=== PATIENT | male | born 1985 | race Caucasian/White ===

== ENCOUNTER 2020-02-22 09:49 | Emergency (ER) | payer OTHER, SELFPAY ==
[2020-02-22 09:56] VITALS: BP 115/71; PULSE 84; RESP 16; TEMP 37.4; O2SAT 98
--- NOTE | 2020-02-22 10:02 | ED.GENADULT ---
HPI - General Adult General Chief complaint: Upper Respiratory Infection Stated complaint: sore throat/ear throbbing Time Seen by Provider: 02/22/20 10:02 Source: patient Mode of arrival: ambulatory Limitations: no limitations History of Present Illness HPI narrative: 34-year-old male patient presents to the [facility] with complaints of a sore throat left-sided ear pain for the past 3 days. Patient states he has had strep throat before in the past. Denies any fevers. Denies any coughing, chest pain or shortness of breath. Denies any runny nose or drainage to the back the throat. Patient states he has been taking Tylenol for his symptoms. Patient states he noticed that the throat swelling was getting worse today almost to the point where he was having trouble swallowing. Related Data Allergies Allergy/AdvReac Type Severity Reaction Status Date / Time No Known Allergies Allergy Verified 02/22/20 10:07 Review of Systems Review of Systems: Narrative: CONSTITUTIONAL: Denies fever, chills, or sweats. EYES: Denies visual changes, redness, or discharge. ENT: Denies rhinorrhea, congestion, positive sore throat, positive left otalgia. CARDIOVASCULAR: Denies chest pain, palpitations, or edema. RESPIRATORY: Denies cough or dyspnea. GASTROINTESTINAL: Denies abdominal pain, nausea, vomiting, or diarrhea. GENITOURINARY: Denies dysuria or hematuria. SKIN: Denies rash or itching. MUSCULOSKELETAL: Denies back pain, joint pain, or myalgia. NEUROLOGIC: Denies headache, numbness, or weakness. PSYCHIATRIC: Denies anxiety or depression. PMFSH Comments At the time of my signature I agree with nursing past medical history, surgical, social, and family history. There is no relevant family history pertinent to the presenting complaint. Exam Narrative: Exam Narrative: GENERAL: Well-appearing, well-nourished, and in no acute distress. HEAD: Normocephalic, atraumatic. EYES: PERRLA and EOMI. ENT: Nares clear, no rhinorrhea or epistaxis. Mucous membranes moist. Posterior pharynx with 3+ tonsil enlargement on bilateral sides, not quite kissing at this time. Patient able talk in clear complete sentences and tolerating secretions well. Patient does have a hot potato voice noted during exam. NECK: Supple. No lymphadenopathy CHEST: Clear to auscultation. No respiratory distress. HEART: Regular rate and rhythm. No murmur heard. Normal peripheral pulses. ABDOMEN: Soft, nontender, nondistended, normal active bowel sounds. EXTREMITIES: Normal range of motion. No edema. SKIN: Warm, dry, no rash. NEURO: No focal deficits. Alert and oriented x3. Course Vital Signs Vital signs: Vital Signs Temperature 37.4 C 02/22/20 09:56 Pulse Rate 84 02/22/20 09:56 Respiratory Rate 16 02/22/20 09:56 Blood Pressure 115/71 02/22/20 09:56 Pulse Oximetry 98 02/22/20 09:56 Temperature 37.4 C 02/22/20 09:56 Pulse Rate 84 02/22/20 09:56 Respiratory Rate 16 02/22/20 09:56 Blood Pressure 115/71 02/22/20 09:56 Pulse Oximetry 98 02/22/20 09:56 Vital signs reviewed. Medical Decision Making Differential Diagnosis Differential Diagnosis: Differential diagnosis: Viral pharyngitis, pharyngitis, group A strep, infectious mononucleosis, gonococcal pharyngitis, exudative pharyngitis, oral candidiasis. Chronic allergies, postnasal drip, GERD, abscess formation, but glottitis, retropharyngeal abscess formation, or airway obstruction. Notified patient that he is negative today for strep however based on the fact that he has had strep before and he does not have any other symptoms besides the sore throat and the tonsil enlargement I think I am to go ahead and place him on antibiotics for possible strep we will send this off to the lab for further evaluation. Discussed with patient offered him a steroid shot in the clinic today however he refused offered him oral steroids which he states he will go ahead and try. Discussed with patient and offered him CO
== END 2020-02-22 10:18 | disposition home or self-care (01) ==
PROVIDERS: Emergency Provider Nurse Practitioner Family
DX: J03.90 Acute tonsillitis, unspecified (principal)
CPT/HCPCS: 87081; 87880; 99213; G0463

== ENCOUNTER 2020-12-08 12:16 | Emergency (ER) | payer OTHER, SELFPAY ==
--- NOTE | ~2020-12-08 | XR_ITS ---
EXAMINATION: XR ankle RT min 3V EXAM DATE: 12/08/2020 13:02 INDICATION: Initial encounter following injury, with pain of the right ankle. TECHNIQUE: Right ankle frontal, lateral and oblique projections obtained and reviewed. There is no p rior study for comparison. FINDINGS: The right ankle mortise appears intact. There are no acute fractures or dislocations iden tified. There is no subcutaneous gas. There is soft tissue swelling over the ankle anterolaterally. There are no radiopaque foreign bodies. IMPRESSION: 1. Right ankle exam without acute osseous findings. 2. Soft tissue swelling. Reviewed, dictated and finalized at location A. [employer]
--- NOTE | 2020-12-08 12:59 | ED.LOWEXIN ---
HPI - Extremity Injury (Lower) General Chief Complaint: Extremity Injury, Lower Stated Complaint: rolled rt ankle Time Seen by Provider: 12/08/20 13:00 Source: patient Mode of arrival: ambulatory Limitations: no limitations History of Present Illness HPI Narrative: Sheldon Rodríguez is a 35 yo male with irregular heartbeat, who comes to express care with right ankle pain and swelling from bowling ankle taking dog for walk. 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 due to what he describes as double heartbeat -and is scheduled to take a stress test and echocardiogram in 2 weeks States he has always had weak ankles and is not the first time he has turned his ankle He has a 6/10 pain when he tries to put pressure on his ankle it hurts on the medial side of the anterior ankle when steps down although he has edema on the lateral malleolus Related Data Home Medications Medication Instructions Recorded Confirmed coenzyme [id number] [CoQ10 SG 1 cap PO DAILY 12/08/20 12/08/20 100] semaglutide [Ozempic] 0.25 mg SUBCUT WEEKLY 12/08/20 12/08/20 Allergies Allergy/AdvReac Type Severity Reaction Status Date / Time No Known Allergies Allergy Verified 12/08/20 12:44 Review of Systems Review of Systems: Narrative: CONSTITUTIONAL: Denies fever, chills, sweats. EYES: Denies visual changes, redness, discharge. ENT: Denies rhinorrhea, congestion, sore throat, otalgia. CARDIOVASCULAR: Denies chest pain, palpitations, edema. RESPIRATORY: Denies dyspnea, wheezing, cough GASTROINTESTINAL: Denies abdominal pain, nausea, vomiting, diarrhea. GENITOURINARY: Denies dysuria, hematuria, abnormal discharge SKIN: Denies rash or itching. NEUROLOGIC: Denies numbness, or focal weakness. PSYCHIATRIC: Denies anxiety or depression. Right ankle lateral swelling with pain on the medial dorsum of foot when stands PMFSH Past Medical History Medical History Tachycardia Family History Family History (Updated 12/08/20 @ 13:11 by Ana Laura Mckinney CNP) Mother Diabetes mellitus Social History Social History (Updated 12/08/20 @ 13:11 by Ana Laura Mckinney CNP) Smoking status: Current every day smoker Tobacco type: e-cigarettes/vaping Alcohol intake: current Alcohol use details: Rarely uses Comments At time of signature, I agree with nursing past medical, surgical, social and family history. There is no relevant family history pertinent to the presenting complaint. Exam Narrative: Exam Narrative: GENERAL: This is a well-nourished, well-developed patient, in mild distress. HEAD: normocephalic, atraumatic. EYES: Sclera clear/white. Vision is grossly intact. EARS: External ears normal, Hearing grossly intact. NOSE: External nose normal without nasal discharge, nares without redness, no rhinorrhea. THROAT: Mucous membranes moist, NECK: Neck supple, CARDIOVASCULAR: Regular rate and rhythm without murmurs, gallops, or rubs. RESPIRATORY: Clear to auscultation. Breath sounds equal bilaterally. No wheezes, rales, or rhonchi. GASTROINTESTINAL: Abdomen soft, SKIN: warm, intact with no suspicious lesions or rash, good texture and turgor. NEURO: awake, alert, and oriented to person, place and time. There were no obvious focal neurologic abnormalities. Steady gait EXTREMITIES: Normal range of motion on L; right ankle has effusion over right malleolus of ankle and pain on left dorsum of foot with pressure in standing; 2+ pedal pulses, skin warm and pink BACK: Nontender without deformity Course Course Emergency Course: Patient comes here with right ankle swelling after turning ankle in a hole outside yard X-ray : shows right ankle soft tissue swelling with out acute osseous finding Patient placed in Bernardo wrap and crutches should rice ankle over the weekend and follow-up with orthopedics if not improved MDM - Extremity Injury (Lower) Differential Diagnosis Dif
== END 2020-12-08 13:41 | disposition home or self-care (01) ==
PROVIDERS: Emergency Provider Nurse Practitioner
DX: S93.401A Sprain of unspecified ligament of right ankle, initial encounter (principal); S96.911A Strain of unspecified muscle and tendon at ankle and foot level, right foot, initial encounter; X50.9XXA Other and unspecified overexertion or strenuous movements or postures, initial encounter; Y93.K1 Activity, walking an animal; F17.200 Nicotine dependence, unspecified, uncomplicated
CPT/HCPCS: 73610; 99213; G0463

== ENCOUNTER 2022-09-08 10:44 | Emergency (ER) | payer OTHER, SELFPAY ==
[2022-09-08 10:54] VITALS: BP 125/84; PULSE 78; RESP 16; TEMP 35.9; O2SAT 98
--- NOTE | 2022-09-08 11:00 | ED.NECK ---
HPI - Neck Pain/Injury General Chief Complaint: Neck Pain/Injury Stated Complaint: neck pain Time Seen by Provider: 09/08/22 11:01 History of Present Illness HPI Narrative: Patient presents with neck pain. Patient states he woke up this morning stretch and thinks he pulled a muscle at that time. No numbness or tingling Related Data Allergies Allergy/AdvReac Type Severity Reaction Status Date / Time No Known Allergies Allergy Verified 12/08/20 12:44 Review of Systems Review of Systems: CONSTITUTIONAL: Denies fever, chills, or sweats. EYES: Denies visual changes, redness, or discharge. ENT: Denies rhinorrhea, congestion, sore throat, or otalgia. CARDIOVASCULAR: Denies chest pain, palpitations, or edema. RESPIRATORY: Denies cough or dyspnea. GASTROINTESTINAL: Denies abdominal pain, nausea, vomiting, or diarrhea. GENITOURINARY: Denies dysuria or hematuria. SKIN: Denies rash or itching. MUSCULOSKELETAL: Denies back pain, joint pain, or myalgia. NEUROLOGIC: Denies headache, numbness, or weakness. PSYCHIATRIC: Denies anxiety or depression. [facility] Past Medical History Medical History Tachycardia Family History Family History (Updated 12/08/20 @ 13:11 by Ana Laura Mckinney, JESUS) Mother Diabetes mellitus Social History Social History (Updated 12/08/20 @ 13:11 by Ana Laura Mckinney, JESUS) Smoking status: Current every day smoker Tobacco type: e-cigarettes/vaping Alcohol intake: current Alcohol use details: Rarely uses Comments At time of signature, agree with nursing past medical, surgical, social and family history. There is no relevant family history pertinent to the presenting complaint Exam Narrative: GENERAL: Well-appearing, well-nourished, and in no acute distress. HEAD: Normocephalic, atraumatic. EYES: PERRLA and EOMI. ENT: Nares clear, no rhinorrhea or epistaxis. Mucous membranes moist. NECK: Supple.NO PARASPINAL TENDERNESS, NO VERTEBRAL TENDERNESS OR STEP OFFS. NO SWELLING. NORMAL ROM OF NECK. NORMAL UE STRENGTH AND SENSATION. CHEST: Clear to auscultation. No respiratory distress. HEART: Regular rate and rhythm. No murmur heard. Normal peripheral pulses. ABDOMEN: Soft, nontender, nondistended, normal active bowel sounds. EXTREMITIES: Normal range of motion. No edema. SKIN: Warm, dry, no rash. NEURO: No focal deficits. Alert and oriented x3. Edwige Coma Scale Eye Opening: Spontaneous 4 [place] Coma Scale Motor: Obeys Commands 6 [place] Coma Scale Verbal: Oriented 5 Edwige Coma Scale Total 15 Course Course Level of Care: Express Care Visit Vital Signs Vital signs: Vital Signs Temperature 35.9 C L 09/08/22 10:54 Pulse Rate 78 09/08/22 10:54 Respiratory Rate 16 09/08/22 10:54 Blood Pressure 125/84 09/08/22 10:54 Pulse Oximetry 98 09/08/22 10:54 Oxygen Delivery Room Air 09/08/22 10:54 Temperature 35.9 C L 09/08/22 10:54 Pulse Rate 78 09/08/22 10:54 Respiratory Rate 16 09/08/22 10:54 Blood Pressure 125/84 09/08/22 10:54 Pulse Oximetry 98 09/08/22 10:54 Oxygen Delivery Room Air 09/08/22 10:54 patient politely declined xray today fells it is all muscular MDM - Neck Pain/Injury Differential Diagnosis Differential diagnosis: Likely disc disorder of cervical region, whiplash injury to neck, closed subluxation of cervical spine, fracture of cervical spine without lesion of spinal cord, cervical radiculopathy, vertebral artery dissection, torticollis, cervical spondylosis and strain of neck muscle Discharge Plan Discharge Clinical Impression: Strain of neck muscle Patient Disposition: Home, Self-Care Condition: Stable Instructions: Cervical Strain (DC) Additional Instructions: medication as prescribed heat as discussed follow up with PCP in 2-3 days if any new or worsening of symptoms go to er immeidately Prescriptions: New cyclobenzaprine 10 mg tablet 10 mg PO BID P
== END 2022-09-08 11:12 | disposition home or self-care (01) ==
PROVIDERS: Emergency Provider Nurse Practitioner Family
DX: S16.1XXA Strain of muscle, fascia and tendon at neck level, initial encounter (principal); F17.209 Nicotine dependence, unspecified, with unspecified nicotine-induced disorders; X50.0XXA Overexertion from strenuous movement or load, initial encounter
CPT/HCPCS: 99213; G0463

== ENCOUNTER 2022-11-10 18:45 | Emergency (ER) | payer OTHER, SELFPAY ==
[2022-11-10 18:52] VITALS: BP 136/78; PULSE 94; RESP 16; TEMP 36.9; O2SAT 100
--- NOTE | 2022-11-10 19:01 | ED.NECK ---
HPI - Neck Pain/Injury General Chief Complaint: Neck Pain/Injury Stated Complaint: neck pain Time Seen by Provider: 11/10/22 18:50 Source: patient and RN notes reviewed History of Present Illness HPI Narrative: patient is a 37-year-old male who presents to urgent care with complaints of left posterior neck pain. Patient states he got up out of bed this morning and twisted his neck. Patient states that he took Tylenol today without much improvement but proceeded to go throughout his day, changing a tire and doing heavy lifting. Patient states the pain is now worse and he has not taken anything for pain since 06/03 this morning. Patient states this is recurrent issue and he has not followed up with the primary care doctor. No other acute complaints. No acute distress noted. Patient aware of the plan care. Some parts of this dictation were generated by voice recognition software and may contain typographical and/or grammatical inaccuracies. Related Data Allergies Allergy/AdvReac Type Severity Reaction Status Date / Time No Known Allergies Allergy Verified 12/08/20 12:44 Review of Systems Review of Systems: CONSTITUTIONAL: Denies fever, chills, or sweats. EYES: Denies visual changes, redness, or discharge. ENT: Denies rhinorrhea, congestion, sore throat, or otalgia. Reports of left posterior neck pain CARDIOVASCULAR: Denies chest pain, palpitations, or edema. RESPIRATORY: Denies cough or dyspnea. GASTROINTESTINAL: Denies abdominal pain, nausea, vomiting, or diarrhea. GENITOURINARY: Denies dysuria or hematuria. SKIN: Denies rash or itching. MUSCULOSKELETAL: Denies back pain, joint pain, or myalgia. NEUROLOGIC: Denies headache, numbness, or weakness. All other systems reviewed are negative, except as documented in HPI. [facility] Past Medical History Medical History Tachycardia Family History Family History (Updated 12/08/20 @ 13:11 by Ana Laura Mckinney, JESUS) Mother Diabetes mellitus Social History Social History (Updated 12/08/20 @ 13:11 by Ana Laura Mckinney, JESUS) Smoking status: Current every day smoker Tobacco type: e-cigarettes/vaping Alcohol intake: current Alcohol use details: Rarely uses Comments At the time of my signature, I reviewed and agree with the nursing past medical, surgical, social, and family history. There is no relevant family history pertinent to the patient complaint. Exam Narrative: GENERAL: This is a well-nourished, well-developed patient, in no apparent distress. HEAD: normocephalic, atraumatic. EYES: PERRL. Sclera clear/white. Vision is grossly intact. EARS: External ears normal, auditory canals clear and without drainage, TMs normal without perforation. Hearing grossly intact. NOSE: External nose normal with no obvious nasal discharge, nares without redness, no rhinorrhea. THROAT: Mucous membranes moist, posterior pharynx clear. NECK: difficulty with flexion and head lift. Chin tuck within normal limits. Moderately exacerbated pain with right flexion. No crepitus or step-off noted to C-spine. No diffuse tenderness. SKIN: warm, intact with no suspicious lesions or rash, good texture and turgor. NEURO: awake, alert, and oriented to person, place and time. There were no obvious focal neurologic abnormalities. EXTREMITIES: No clubbing, cyanosis, or edema. Course Course Level of Care: Express Care Visit Vital Signs Vital signs: Vital Signs Temperature 98.4 F 11/10/22 18:52 Pulse Rate 94 11/10/22 18:52 Respiratory Rate 16 11/10/22 18:52 Blood Pressure 136/78 11/10/22 18:52 Pulse Oximetry 100 11/10/22 18:52 Oxygen Delivery Room Air 11/10/22 18:52 Temperature 98.4 F 11/10/22 18:52 Pulse Rate 94 11/10/22 18:52 Respiratory Rate 16 11/10/22 18:52 Blood Pressure 136/78 11/10/22 18:52 Pulse Oximetry 100 11/10/22 18:52 Oxygen Delivery Room Air 11/10/22 18:52 reviewed MDM
== END 2022-11-10 19:18 | disposition home or self-care (01) ==
PROVIDERS: Emergency Provider Nurse Practitioner Family; PCP Emergency Medicine
DX: S16.1XXA Strain of muscle, fascia and tendon at neck level, initial encounter (principal); X50.9XXA Other and unspecified overexertion or strenuous movements or postures, initial encounter; F17.290 Nicotine dependence, other tobacco product, uncomplicated
CPT/HCPCS: 99213; G0463

== ENCOUNTER → 2022-11-18 09:21 | Outpatient (CLI) | payer OTHER, SELFPAY ==
--- NOTE | ~2022-11-18 | XR_ITS ---
EXAMINATION: XR cervical spine 4-5V DATE: 11/18/2022 09:48 INDICATION: Left posterior neck pain. TECHNIQUE: 6 views of cervical spine were obtained. COMPARISON: None. FINDINGS: There is kyphosis of cervical spine. There is 6 degrees dextrocurvature of cervicothoracic spine. Vertebral body heights are normal. There is mildly decreased disc height at C4-C5. The uncover tebral joints and facet joints are unremarkable. No central canal stenosis or prevertebral soft tissu e swelling. IMPRESSION: 1. Mild cervical spondylosis. Reviewed, dictated and finalized at location A. [employer]
--- NOTE | ~2022-11-18 | XR_ITS ---
EXAMINATION: XR chest 2V DATE: 11/18/2022 09:47 INDICATION: Asthma. Smoker. TECHNIQUE: Frontal and lateral views of the chest were obtained. COMPARISON: None. FINDINGS: The chest demonstrates clear lungs without pneumonia, pleural effusion, or pneumothorax. Th e heart size is normal. IMPRESSION: 1. No acute cardiopulmonary disease. Reviewed, dictated and finalized at location A. 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
== END ==
PROVIDERS: PCP Emergency Medicine; Visit Provider Emergency Medicine
DX: Z12.2 Encounter for screening for malignant neoplasm of respiratory organs (principal); Z87.891 Personal history of nicotine dependence; M54.2 Cervicalgia
CPT/HCPCS: 71046; 72050

== ENCOUNTER 2022-12-05 13:07 | Emergency (ER) | payer OTHER, SELFPAY ==
--- NOTE | ~2022-12-05 | XR_ITS ---
EXAMINATION: XR wrist RT min 3V DATE: 12/05/2022 13:27 INDICATION: Right wrist pain. TECHNIQUE: 4 views of right wrist were obtained. COMPARISON: None. FINDINGS: There is an old healed fracture of distal radius. There is neutral tilt of the distal artic ular surface. 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 No acute fracture. There is mi ld osteoarthritis of first carpometacarpal joint. IMPRESSION: 1. Mild osteoarthritis of first carpometacarpal joint. Reviewed, dictated and finalized at location A. 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
[2022-12-05 13:12] VITALS: BP 113/82; PULSE 79; RESP 16; TEMP 36.7; O2SAT 100
--- NOTE | 2022-12-05 13:35 | ED.GENADULT ---
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 Patient reports past fracture of his right wrist in the past with pinning of fracture. Patient reports pain to dorsal mid aspect of his right wrist which is aggravated with flexion and extension, strong pulse present right wrist with no obvious deformity. MD complaint: right wrist pain. Onset (ago): week(s) (1) Severity scale (1-10): 5 Treatments prior to arrival: cold therapy and other (elevation) Related Data Home Medications Medication Instructions Recorded Confirmed semaglutide 0.25 mg or 0.5 mg (2 See Rx Instructions .Route .COMPLEX 12/05/22 12/05/22 mg/1.5 mL) subcutaneous pen injector (Ozempic) Allergies Allergy/AdvReac Type Severity Reaction Status Date / Time No Known Allergies Allergy Verified 12/08/20 12:44 Review of Systems Review of Systems: CONSTITUTIONAL: Denies fever, chills, or sweats. EYES: Denies visual changes, redness, or discharge. ENT: Denies rhinorrhea, congestion, sore throat, or otalgia. CARDIOVASCULAR: Denies chest pain, palpitations, or edema. RESPIRATORY: Denies cough or dyspnea. GASTROINTESTINAL: Denies abdominal pain, nausea, vomiting, or diarrhea. GENITOURINARY: Denies dysuria or hematuria. SKIN: Denies rash or itching. MUSCULOSKELETAL: Denies back pain,positive for right joint pain, or myalgia. NEUROLOGIC: Denies headache, numbness, or weakness. PSYCHIATRIC: Denies anxiety or depression. All systems reviewed & are unremarkable except as noted in HPI and below PMFSH Past Medical History Medical History (Updated 12/06/22 @ 10:33 by Kate Jerez NP) Tachycardia Surgical History Surgical History H/O right wrist surgery ORIF fracture S/P left inguinal herniorrhaphy Family History Family History Mother Diabetes mellitus Social History Social History (Updated 12/06/22 @ 10:38 by Kate Jerez NP) Smoking status: Current every day smoker Tobacco type: e-cigarettes/vaping Alcohol intake: current Alcohol use details: Rarely uses Substance use type: does not use Living arrangements: with family Gender identity (if verbalized by the patient): Male Comments At time of signature, agree with nursing past medical, surgical, social and family history. There is no relevant family history pertinent to the presenting complaint Exam Narrative: GENERAL: Well-appearing, well-nourished, and in no acute distress. HEAD: Normocephalic, atraumatic. EYES: PERRLA and EOMI. ENT: Nares clear, no rhinorrhea or epistaxis. Mucous membranes moist.TM's normal with good light reflex, throat pink with no swelling. NECK: Supple.no lymphadenopathy CHEST: Clear to auscultation. No respiratory distress. SAO2 100% on room air HEART: Regular rate and rhythm. No murmur heard. Normal peripheral pulses. ABDOMEN: Soft, nontender, nondistended, normal active bowel sounds. EXTREMITIES: Normal range of motion. No edema.reports pain to dorsal mid wrist area with increased discomfort with flexion and extension, no tingling or numbness to fingers, circulation intact SKIN: Warm, dry, no rash. NEURO: No focal deficits. Alert and oriented x3. Course Course Emergency Course: Patient is aware of diagnosis, understands and agrees to treatment plan.? Anticipatory guidance given.? Patient agrees to follow-up as directed and is aware of reasons t
== END 2022-12-05 14:05 | disposition home or self-care (01) ==
PROVIDERS: Emergency Provider Registered Nurse; PCP Emergency Medicine
DX: S66.911A Strain of unspecified muscle, fascia and tendon at wrist and hand level, right hand, initial encounter (principal); X50.3XXA Overexertion from repetitive movements, initial encounter; F17.290 Nicotine dependence, other tobacco product, uncomplicated
CPT/HCPCS: 73110; 99213; G0463

== ENCOUNTER 2023-03-27 13:46 | Emergency (ER) | payer OTHER, SELFPAY ==
--- NOTE | ~2023-03-27 | XR_ITS ---
EXAMINATION: XR chest 2V 03/27/2023 14:21 INDICATION: Shortness of breath, productive cough. Chest burning. PROCEDURE: 2 view chest COMPARISON: 11/18/2022 FINDINGS: The lungs are clear. The cardiomediastinal silhouette is within normal limits. There are no pleural effusions. There is no pneumothorax suspected. IMPRESSION: 1: NO ACUTE CARDIOPULMONARY DISEASE. Reviewed, dictated and finalized at location []
[2023-03-27 13:55] VITALS: BP 109/73; PULSE 84; RESP 14; TEMP 36.7; O2SAT 97
[2023-03-27 14:05] VITALS: BP 109/73; PULSE 84; RESP 14; TEMP 36.7; O2SAT 97
--- NOTE | 2023-03-27 14:15 | ED.URI ---
HPI - URI/Sore Throat General Chief Complaint: Upper Respiratory Infection Stated Complaint: respiratory issues Source: patient and RN notes reviewed History of Present Illness HPI Narrative: 37 yo M presents to urgent care with complaints of productive cough, SOB, chest tightness, and fatigue since yesterday. Pt denies any sore throat, ear pain, congestion, fevers, chills, vomiting, or diarrhea. Pt does report a hx of asthma and states he has been using his inhalers at home with minimal relief. Related Data Home Medications Medication Instructions Recorded Confirmed cholecalciferol (vitamin D3) 50 50 mcg PO DAILY 03/27/23 03/27/23 mcg (2,000 unit) capsule (Vitamin D3) Allergies Allergy/AdvReac Type Severity Reaction Status Date / Time No Known Allergies Allergy Verified 03/27/23 14:04 Review of Systems Review of Systems: Pertinent positives and pertinent negatives per HPI. [facility] Past Medical History Medical History (Updated 03/27/23 @ 14:38 by Trina Ruiz APRN) Tachycardia Surgical History Surgical History H/O right wrist surgery ORIF fracture S/P left inguinal herniorrhaphy Family History Family History Mother Diabetes mellitus Social History Social History (Updated 12/06/22 @ 10:38 by Kate Jerez NP) Smoking status: Current every day smoker Tobacco type: e-cigarettes/vaping Alcohol intake: current Alcohol use details: Rarely uses Substance use type: does not use Living arrangements: with family Gender identity (if verbalized by the patient): Male Comments At the time of my signature, I reviewed and agree with the nursing past medical, surgical, social, and family history. There is no relevant family history pertinent to the patient complaint. Exam Narrative: GENERAL: This is a well-nourished, well-developed patient, in no apparent distress. HEAD: normocephalic, atraumatic. EYES: Sclera clear/white. Vision is grossly intact. EARS: External ears normal, auditory canals clear and without drainage. Hearing grossly intact. NOSE: External nose normal with no obvious nasal discharge, nares without redness, no rhinorrhea. THROAT: Mucous membranes moist, posterior pharynx clear. NECK: Neck supple, non-tender without lymphadenopathy, masses or thyromegaly. CARDIOVASCULAR: Regular rate and rhythm without murmurs, gallops, or rubs. RESPIRATORY: Clear to auscultation. Breath sounds equal bilaterally. No wheezes, rales, or rhonchi. SKIN: warm, intact with no suspicious lesions or rash, good texture and turgor. NEURO: awake, alert, and oriented to person, place and time. There were no obvious focal neurologic abnormalities. EXTREMITIES: No clubbing, cyanosis, or edema. No joint tenderness, effusion, or edema noted. BACK: Nontender without deformity or crepitus. No flank tenderness. Course Course Level of Care: Express Care Visit Vital Signs Vital signs: Vital Signs Temperature 98.1 F 03/27/23 13:55 Pulse Rate 84 03/27/23 13:55 Respiratory Rate 14 03/27/23 13:55 Blood Pressure 109/73 03/27/23 13:55 Pulse Oximetry 97 03/27/23 13:55 Oxygen Delivery Room Air 03/27/23 13:55 Temperature 98.1 F 03/27/23 14:05 Pulse Rate 84 03/27/23 14:05 Respiratory Rate 14 03/27/23 14:05 Blood Pressure 109/73 03/27/23 14:05 Pulse Oximetry 97 03/27/23 14:05 Oxygen Delivery Room Air 03/27/23 14:05 reviewed. MDM - URI/Sore Throat MDM Narrative Medical decision making narrative: Viral illness may last between 7-21 days; antibiotics do not cure viral illness and are NOT recommended at this time. Also, recommend symptomatic treatment includes: rest, fluids, and increase humidity of the air at home. Recommend Acetaminophen as directed on the bottle to reduce fever, pain, headache. Please schedule a follow-up visit with your pe
[2023-03-27] MEDS: predniSONE 20 MG TABLET 60 MG PO (14:47)
== END 2023-03-27 14:50 | disposition home or self-care (01) ==
PROVIDERS: Emergency Provider Nurse Practitioner Family; PCP Emergency Medicine
DX: B34.9 Viral infection, unspecified (principal); F17.290 Nicotine dependence, other tobacco product, uncomplicated
CPT/HCPCS: 71046; 99213; G0463; J7512

== ENCOUNTER 2023-05-02 15:58 | Emergency (ER) | payer OTHER, SELFPAY ==
[2023-05-02 16:08] VITALS: BP 113/83; PULSE 85; RESP 20; TEMP 36.8; O2SAT 100
--- NOTE | 2023-05-02 16:23 | ED.NAVMDI ---
HPI - Nausea/Vomiting/Diarrhea General Stated complaint: Nausea History of Present Illness HPI Narrative: He is tolerating fluids well and keeping his self hydrated. No abdominal pain no fever no shortness of breath and no chest pain. requesting a work note. 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 Patient had nausea vomiting and diarrhea yesterday which have since resolved. Related Data Home Medications Medication Instructions Recorded Confirmed No Home Medications 05/02/23 05/02/23 Allergies Allergy/AdvReac Type Severity Reaction Status Date / Time No Known Allergies Allergy Verified 05/02/23 16:23 Review of Systems Review of Systems: CONSTITUTIONAL: Denies fever, chills, or sweats. EYES: Denies visual changes, redness, or discharge. ENT: Denies rhinorrhea, congestion, sore throat, or otalgia. CARDIOVASCULAR: Denies chest pain, palpitations, or edema. RESPIRATORY: Denies cough or dyspnea. GASTROINTESTINAL: Denies abdominal pain, nausea, vomiting, or diarrhea. GENITOURINARY: Denies dysuria or hematuria. SKIN: Denies rash or itching. MUSCULOSKELETAL: Denies back pain, joint pain, or myalgia. NEUROLOGIC: Denies headache, numbness, or weakness. PSYCHIATRIC: Denies anxiety or depression. [facility] Past Medical History Medical History (Updated 05/02/23 @ 16:29 by PAM Resendiz) Tachycardia Surgical History Surgical History H/O right wrist surgery ORIF fracture S/P left inguinal herniorrhaphy Family History Family History Mother Diabetes mellitus Social History Social History (Updated 12/06/22 @ 10:38 by Kate Jerez NP) Smoking status: Current every day smoker Tobacco type: e-cigarettes/vaping Alcohol intake: current Alcohol use details: Rarely uses Substance use type: does not use Living arrangements: with family Gender identity (if verbalized by the patient): Male Comments At time of signature, agree with nursing past medical, surgical, social and family history. There is no relevant family history pertinent to the presenting complaint Exam Narrative: GENERAL: Well-appearing, well-nourished, and in no acute distress. HEAD: Normocephalic, atraumatic. EYES: PERRLA and EOMI. ENT: Nares clear, no rhinorrhea or epistaxis. Mucous membranes moist. NECK: Supple. CHEST: Clear to auscultation. No respiratory distress. HEART: Regular rate and rhythm. No murmur heard. Normal peripheral pulses. ABDOMEN: Soft, nontender, nondistended, normal active bowel sounds. EXTREMITIES: Normal range of motion. No edema. SKIN: Warm, dry, no rash. NEURO: No focal deficits. Alert and oriented x3. Roundup Coma Scale Eye Opening: Spontaneous 4 Edwige Coma Scale Motor: Obeys Commands 6 Roundup Coma Scale Verbal: Oriented 5 Roundup Coma Scale Total 15 Course Course Level of Care: Express Care Visit Vital Signs Vital signs: Vital Signs Temperature 36.8 C 05/02/23 16:08 Pulse Rate 85 05/02/23 16:08 Respiratory Rate 20 05/02/23 16:08 Blood Pressure 113/83 05/02/23 16:08 Pulse Oximetry 100 05/02/23 16:08 Oxygen Delivery Room Air 05/02/23 16:08 Temperature 36.8 C 05/02/23 16:08 Pulse Rate 85 05/02/23 16:08 Respiratory Rate 20 05/02/23 16:08 Blood Pressure 113/83 05/02/23 16:08 Pulse Oximetry 100 05/02/23 16:08 Oxygen Delivery Room Air 05/02/23 16:08 Discharge Plan Discharge Clinical Impression: Dehydration, mild, Nausea & vomiting Patient Disposition: Home, Self-Care Condition: Stable Instructions: Dehydration (DC) Additional Instructions: Clear liquids for the next 8-10 hours, then advance to a bland diet as tolerated A bland diet can consist of--BRAT diet which is bananas, rice, applesauce, and toast Avoid fried, greasy, fatty, fried foods Avoid caffeine, ni
== END 2023-05-02 16:30 | disposition home or self-care (01) ==
PROVIDERS: Emergency Provider Nurse Practitioner Family; PCP Emergency Medicine
DX: E86.0 Dehydration (principal); R11.2 Nausea with vomiting, unspecified; F17.290 Nicotine dependence, other tobacco product, uncomplicated
CPT/HCPCS: 99211; G0463

== ENCOUNTER 2023-06-15 15:12 | Emergency (ER) | payer OTHER, SELFPAY ==
[2023-06-15 15:27] VITALS: BP 119/80; PULSE 90; RESP 16; TEMP 36.7; O2SAT 99
--- NOTE | 2023-06-15 15:51 | ED.URI ---
HPI - URI/Sore Throat General Chief Complaint: Upper Respiratory Infection Stated Complaint: Asthma problems Source: patient and RN notes reviewed History of Present Illness HPI Narrative: 38 yo M presents to urgent care with complaints of breathing issues since last night. Pt states it's hard for him to get a good breath in b/c he'll start coughing. Pt states hes been using his inhalers with minimal relief. Also reports diarrhea but states could be his IBS. Reports some congestion and slight VILLASENOR. Denies any fevers, chills, abdominal pain, vomiting, chest pain, or ear pain. Pt states he called off today and is needing a work note to go back tomorrow. Related Data Allergies Allergy/AdvReac Type Severity Reaction Status Date / Time No Known Allergies Allergy Verified 05/02/23 16:23 Review of Systems Review of Systems: Pertinent positives and pertinent negatives per HPI. PMFSH Past Medical History Medical History (Updated 06/15/23 @ 15:56 by Trina Ruiz, DEMETRIO) Tachycardia Surgical History Surgical History H/O right wrist surgery ORIF fracture S/P left inguinal herniorrhaphy Family History Family History Mother Diabetes mellitus Social History Social History (Updated 12/06/22 @ 10:38 by Kate Jerez NP) Smoking status: Current every day smoker Tobacco type: e-cigarettes/vaping Alcohol intake: current Alcohol use details: Rarely uses Substance use type: does not use Living arrangements: with family Gender identity (if verbalized by the patient): Male Comments At the time of my signature, I reviewed and agree with the nursing past medical, surgical, social, and family history. There is no relevant family history pertinent to the patient complaint. Exam Narrative: GENERAL: This is a well-nourished, well-developed patient, in no apparent distress. HEAD: normocephalic, atraumatic. EYES: Sclera clear/white. Vision is grossly intact. EARS: External ears normal, auditory canals clear and without drainage, TMs normal without perforation. Hearing grossly intact. NOSE: External nose normal with no obvious nasal discharge, nares without redness, no rhinorrhea. THROAT: Mucous membranes moist, posterior pharynx clear. NECK: Neck supple, non-tender without lymphadenopathy, masses or thyromegaly. CARDIOVASCULAR: Regular rate and rhythm without murmurs, gallops, or rubs. RESPIRATORY: Clear to auscultation. Breath sounds equal bilaterally. No wheezes, rales, or rhonchi. GASTROINTESTINAL: Abdomen soft, non-tender, nondistended. Bowel sounds are active. No hepato-splenomegaly, or palpable masses. No guarding. SKIN: warm, intact with no suspicious lesions or rash, good texture and turgor. NEURO: awake, alert, and oriented to person, place and time. There were no obvious focal neurologic abnormalities. EXTREMITIES: No clubbing, cyanosis, or edema. No joint tenderness, effusion, or edema noted. BACK: Nontender without deformity or crepitus. No flank tenderness. Course Course Level of Care: Express Care Visit Vital Signs Vital signs: Vital Signs Temperature 98.1 F 06/15/23 15:27 Pulse Rate 90 06/15/23 15:27 Respiratory Rate 16 06/15/23 15:27 Blood Pressure 119/80 06/15/23 15:27 Pulse Oximetry 99 06/15/23 15:27 Oxygen Delivery Room Air 06/15/23 15:27 Temperature 98.1 F 06/15/23 15:27 Pulse Rate 90 06/15/23 15:27 Respiratory Rate 16 06/15/23 15:27 Blood Pressure 119/80 06/15/23 15:27 Pulse Oximetry 99 06/15/23 15:27 Oxygen Delivery Room Air 06/15/23 15:27 Review MDM - URI/Sore Throat MDM Narrative Medical decision making narrative: Take steroids as directed. May use the inhaler every 4-6 hours as needed for coughing. Increase fluids at home. Avoid any and all smoke. May use a humidifier in the bedroom. Increase your Vitamin C. F
== END 2023-06-15 16:00 | disposition home or self-care (01) ==
PROVIDERS: Emergency Provider Nurse Practitioner Family; PCP Emergency Medicine
DX: J40 Bronchitis, not specified as acute or chronic (principal); F17.290 Nicotine dependence, other tobacco product, uncomplicated
CPT/HCPCS: 99213; G0463

== ENCOUNTER 2023-10-19 19:23 | Emergency (ER) | payer OTHER, SELFPAY ==
[2023-10-19 19:26] VITALS: BP 128/79; PULSE 80; RESP 18; TEMP 36.7; O2SAT 100
--- NOTE | 2023-10-19 19:36 | ED.GENADULT ---
HPI - General Adult General Chief complaint: Nausea/Vomiting/Diarrhea Stated complaint: nausea/diarrhea/headache Source: patient, RN notes reviewed and old records reviewed Mode of arrival: ambulatory Limitations: no limitations History of Present Illness HPI narrative: 38-year-old male patient presents to [facility] with complaints nausea, vomiting for 2 days then today started having diarrhea. Patient states has slight abdominal cramping with having loose stools but denies abdominal pain or tenderness. Patient taking NyQuil with no relief. Patient states had to episodes of vomiting today. patient went to another urgent care and did a telehealth visit there. Patient states had COVID and flu testing that were both negative but then was unable to complete visit due to computer air. MD complaint: N/V/D Onset (ago): day(s) (1-2) Related Data Allergies Allergy/AdvReac Type Severity Reaction Status Date / Time No Known Allergies Allergy Verified 10/19/23 19:37 Review of Systems Constitutional: Constitutional: Reports no additional constitutional complaints, Denies body ache(s), Denies chills, Denies fatigue, Denies fever(s) and Denies headache(s) Eyes: Eyes: Reports no additional eye complaints and Denies blurry vision ENT: Reports system reviewed and no additional complaints, except as documented, Denies vertigo, Denies dizziness, Denies ear discharge, Denies otalgia, Denies facial pain, Denies headache(s), Denies nasal congestion, Denies nasal discharge, Denies sinus pain, Denies sinus pressure and Denies sore throat Cardiovascular: Cardiovascular: Reports no additional cardiovascular complaints, Denies chest pain, Denies chest pain at rest, Denies rapid heart rate and Denies dyspnea Respiratory: Respiratory: Reports no additional respiratory complaints, Denies chest congestion, Denies cough, Denies pain on inspiration, Denies pain with cough and Denies dyspnea Gastrointestinal: Gastrointestinal: Denies abdominal pain, Reports diarrhea, Reports nausea and Reports vomiting Integumentary/Breasts: Skin/Breast: Denies rash Neurologic: Reports system reviewed and no additional complaints, except as documented, Denies vertigo, Denies dizziness and Denies headache(s) Endocrine: Endocrine: Denies fatigue PMFSH Past Medical History Medical History Tachycardia Surgical History Surgical History H/O right wrist surgery ORIF fracture S/P left inguinal herniorrhaphy Family History Family History Mother Diabetes mellitus Social History Social History Smoking status: Current every day smoker Tobacco type: e-cigarettes/vaping Alcohol intake: current Alcohol use details: Rarely uses Substance use type: does not use Living arrangements: with family Gender identity (if verbalized by the patient): Male Comments At the time of my signature, I reviewed and agree with the nursing past medical, surgical, social, and family history. There is no relevant family history pertinent to the patient complaint. Exam Const: General: cooperative, healthy appearing, no acute distress and well nourished Nutritional Appearance: well nourished Orientation/consciousness: patient oriented x3 Limitations: no limitations HENMT: Head: normal to inspection and normocephalic Ears: external ears normal, TM's normal bilaterally, mastoids normal and Abnormal EAC present Face/Nose/Sinus: normal facial exam Face and sinus: normal facial exam Mouth: Yes Normal oral and palatal mucosa present, Yes oropharynx normal and Yes moist mucous membranes Throat: posterior oropharynx normal, tonsils normal, uvula midline and no uvular edema Eyes: General: appearance normal, both eyes and all related structures Sclera: sclerae nor
== END 2023-10-19 19:40 | disposition home or self-care (01) ==
PROVIDERS: Emergency Provider Registered Nurse
DX: A08.4 Viral intestinal infection, unspecified (principal); F17.290 Nicotine dependence, other tobacco product, uncomplicated
CPT/HCPCS: 99213; G0463

== ENCOUNTER 2023-11-23 19:06 | Emergency (ER) | payer OTHER, SELFPAY ==
[2023-11-23 19:18] VITALS: BP 145/79; PULSE 112; RESP 16; TEMP 36.9; O2SAT 98
--- NOTE | 2023-11-23 19:22 | ED.ABDPAIN ---
HPI - Abdominal Pain General Chief Complaint: Abdominal Pain Stated Complaint: Diarrhea/Abdominal Pain Time Seen by Provider: 11/23/23 19:24 Source: patient and RN notes reviewed Mode of arrival: ambulatory Limitations: no limitations History of Present Illness HPI narrative: 38-year-old male with hx IBS presented for complaint of fatigue, abdominal bloating and diarrhea x3 days. However he states he has had no diarrhea today. Endorses feeling weak and slept most of today, slightly decreased appetite. LBM yesterday. Denies hematochezia, melena, vomiting, fevers or chills. Takes pantoprazole daily. Related Data Home Medications Medication Instructions Recorded Confirmed albuterol sulfate 90 mcg/actuation inhalation 11/23/23 aerosol inhaler pantoprazole 40 mg tablet,delayed mg PO 11/23/23 release Allergies Allergy/AdvReac Type Severity Reaction Status Date / Time No Known Allergies Allergy Verified 10/19/23 19:37 Review of Systems Review of Systems: CONSTITUTIONAL: Denies body aches, fever, chills ENT: Denies rhinorrhea, congestion CARDIOVASCULAR: Denies chest pain, palpitations, or edema. RESPIRATORY: Denies cough or dyspnea. GASTROINTESTINAL: Endorses bloating nausea, diarrhea. Denies abdominal pain,vomiting, hematochezia, melena, hematemesis GENITOURINARY: Denies dysuria, hematuria, or CVA tenderness. SKIN: Denies rash, itching, or wounds. MUSCULOSKELETAL: Denies back pain, joint pain, or myalgia. NEUROLOGIC: Denies headache, numbness, tingling, or weakness. All systems reviewed & are unremarkable except as noted in HPI and below PMFSH Past Medical History Medical History Tachycardia Surgical History Surgical History H/O right wrist surgery ORIF fracture S/P left inguinal herniorrhaphy Family History Family History Mother Diabetes mellitus Social History Social History Smoking status: Current every day smoker Tobacco type: e-cigarettes/vaping Alcohol intake: current Alcohol use details: Rarely uses Substance use type: does not use Living arrangements: with family Gender identity (if verbalized by the patient): Male Comments At time of signature, I have reviewed and agree with nursing past medical, surgical, social and family history unless otherwise noted. Please see nursing chart for further information. There is no relevant family history pertinent to the presenting complaint Exam Narrative: GENERAL: mildly ill-appearing, and in no acute distress. EYES: EOMI. Conjunctivae normal. ENT: Mucous membranes pink and moist. CHEST: No respiratory distress. Clear to auscultation. HEART: Regular rate and rhythm. No murmur appreciated. Normal peripheral pulses. ABDOMEN: abd soft, nondistended, normal active bowel sounds. nontender abdomen, No guarding, rebound tenderness, asymmetry EXTREMITIES: Normal range of motion. No edema. SKIN: Warm, dry, no rash. Capillary refill normal. Normal skin turgor. NEURO: No focal deficits. Alert and oriented x3. PSYCH: Normal affect. Course Course Emergency Course: Patient is aware of diagnosis, understands and agrees to treatment plan. Anticipatory guidance given. Patient agrees to follow-up as directed and is aware of reasons to seek care at the emergency department. Portions of this record may have been created with voice recognition software Level of Care: Express Care Visit Vital Signs Vital signs: Vital Signs Temperature 98.5 F 11/23/23 19:18 Pulse Rate 112 H 11/23/23 19:18 Respiratory Rate 16 11/23/23 19:18 Blood Pressure 145/79 H 11/23/23 19:18 Pulse Oximetry 98 11/23/23 19:18 Oxygen Delivery Room Air 11/23/23 19:18 Temperature 98.5 F 11/23/23 19:18 Pulse
== END 2023-11-23 19:53 | disposition home or self-care (01) ==
PROVIDERS: Emergency Provider Nurse Practitioner Family
DX: R19.7 Diarrhea, unspecified (principal); Z20.822 Contact with and (suspected) exposure to COVID-19
CPT/HCPCS: 87426; 87804; 99213; G0463

== ENCOUNTER 2024-01-25 18:01 | Emergency (ER) | payer OTHER, SELFPAY ==
--- NOTE | 2024-01-25 18:26 | ED.GENADULT ---
HPI - General Adult General Chief complaint: Upper Respiratory Infection Stated complaint: Diarrhea/Headache/Nausea Source: patient, RN notes reviewed and old records reviewed Mode of arrival: ambulatory Limitations: no limitations History of Present Illness HPI narrative: 38-year-old male patient presents to [facility] with complaints of congestion, headache, myalgia, nausea, diarrhea, general malaise that started 2 days ago. Patient states is not taking anything for diarrhea. Patient denies vomiting. Patient denies fever. Related Data Home Medications Medication Instructions Recorded Confirmed albuterol sulfate 90 mcg/actuation inhalation 11/23/23 aerosol inhaler pantoprazole 40 mg tablet,delayed mg PO 11/23/23 release Allergies Allergy/AdvReac Type Severity Reaction Status Date / Time No Known Allergies Allergy Verified 10/19/23 19:37 Review of Systems Constitutional: Constitutional: Reports no additional constitutional complaints, Reports body ache(s), Denies chills, Denies fatigue, Denies fever(s) and Reports headache(s) Eyes: Eyes: Reports no additional eye complaints and Denies blurry vision ENT: Reports system reviewed and no additional complaints, except as documented, Denies vertigo, Denies dizziness, Denies ear discharge, Denies otalgia, Denies facial pain, Reports headache(s), Reports nasal congestion, Reports nasal discharge, Denies sinus pain, Denies sinus pressure and Denies sore throat Cardiovascular: Cardiovascular: Reports no additional cardiovascular complaints, Denies chest pain, Denies chest pain at rest, Denies rapid heart rate and Denies dyspnea Respiratory: Respiratory: Reports no additional respiratory complaints, Denies chest congestion, Denies cough, Denies pain on inspiration, Denies pain with cough and Denies dyspnea Gastrointestinal: Gastrointestinal: Denies abdominal pain, Reports diarrhea, Reports nausea and Denies vomiting Integumentary/Breasts: Skin/Breast: Denies rash Neurologic: Reports system reviewed and no additional complaints, except as documented, Denies vertigo, Denies dizziness and Denies headache(s) Endocrine: Endocrine: Denies fatigue PMFSH Past Medical History Medical History Tachycardia Surgical History Surgical History H/O right wrist surgery ORIF fracture S/P left inguinal herniorrhaphy Family History Family History Mother Diabetes mellitus Social History Social History Smoking status: Current every day smoker Tobacco type: e-cigarettes/vaping Alcohol intake: current Alcohol use details: Rarely uses Substance use type: does not use Living arrangements: with family Gender identity (if verbalized by the patient): Male Comments At the time of my signature, I reviewed and agree with the nursing past medical, surgical, social, and family history. There is no relevant family history pertinent to the patient complaint. Exam Const: General: cooperative, healthy appearing, no acute distress and well nourished Nutritional Appearance: well nourished Orientation/consciousness: patient oriented x3 Limitations: no limitations HENMT: Head: normal to inspection and normocephalic Ears: external ears normal, TM's normal bilaterally, EAC's normal and mastoids normal Face/Nose/Sinus: normal facial exam Face and sinus: normal facial exam Mouth: Yes Normal oral and palatal mucosa present, Yes oropharynx normal and Yes moist mucous membranes Throat: tonsils normal, uvula midline, normal tonsils, no peritonsillar masses, normal posterior oropharynx, postnasal drainage and no uvular edema Eyes: General: appearance normal, both eyes and all related structures Sclera: sclerae normal Pupils: Equal, round and reactive pupils
[2024-01-25 18:28] VITALS: BP 122/74; PULSE 92; RESP 18; TEMP 37; O2SAT 99
== END 2024-01-25 18:45 | disposition home or self-care (01) ==
PROVIDERS: Emergency Provider Registered Nurse
DX: A08.4 Viral intestinal infection, unspecified (principal); Z20.822 Contact with and (suspected) exposure to COVID-19; F17.290 Nicotine dependence, other tobacco product, uncomplicated
CPT/HCPCS: 87426; 87804; 99213; G0463

== ENCOUNTER 2024-02-12 13:43 | Emergency (ER) | payer OTHER, SELFPAY ==
[2024-02-12 13:49] VITALS: BP 114/81; PULSE 83; RESP 18; TEMP 36.8; O2SAT 99
--- NOTE | 2024-02-12 14:24 | ED.URI ---
HPI - URI/Sore Throat General Chief Complaint: Upper Respiratory Infection Stated Complaint: sinus pressure/headache Time Seen by Provider: 02/12/24 14:05 Source: patient, RN notes reviewed and old records reviewed Mode of arrival: ambulatory Limitations: no limitations History of Present Illness HPI Narrative: 38 year old male who presents to express care with complaints of sinus pressure and headaches for 2 day duration, post nasal drainage with facial pressure and pain. Patient reports that he has history of sinus problems in the past and does take daily sallergy medication and he aalso has been taking Mucinex for his symptoms. Patient denies any sore throat or any ear pain,reports that he has noted nasal drainage to be yellow when he blows nose, denies any fevers, chills or any shortness of breath. Patient oes have history of asthma. MD elicited complaint: cough, rhinorrhea, nasal congestion, sinus pain and other Pertinent past history: asthma and seasonal allergies Onset (ago): day(s) (2) Consistency: constant Pain scale (0-10): 6 Description of mucous: yellow Able to tolerate fluids by mouth: Yes Treatments prior to arrival: other (allergy medication and Mucinex) Related Data Home Medications Medication Instructions Recorded Confirmed albuterol sulfate 90 mcg/actuation 1 puff inhalation Q4-6H 11/23/23 02/12/24 aerosol inhaler pantoprazole 40 mg tablet,delayed 40 mg PO DAILY 11/23/23 02/12/24 release Allergies Allergy/AdvReac Type Severity Reaction Status Date / Time No Known Allergies Allergy Verified 02/12/24 13:57 Review of Systems Review of Systems: CONSTITUTIONAL: Denies malaise, chills, sweats, or fever. EYES: Denies visual changes, redness, or discharge. ENT: Reports rhinorrhea, congestion, sinus pain, no otalgia and no sore throat. CARDIOVASCULAR: Denies chest pain, palpitations, or edema. RESPIRATORY: Reports cough.? Denies dyspnea. GASTROINTESTINAL: Denies abdominal pain, nausea, vomiting, diarrhea SKIN: Denies rash or itching. MUSCULOSKELETAL: Denies myalgia. NEUROLOGIC:positive for frontal throbbing headache. All systems reviewed & are unremarkable except as noted in HPI and below PMFSH Past Medical History Medical History (Updated 02/14/24 @ 08:20 by Kate L. Solitario, [employer]PER[employer] AGENT) Asthma GERD (gastroesophageal reflux disease) History of sinus problem Tachycardia Undescended testicle, unilateral Surgical History Surgical History H/O right wrist surgery ORIF fracture S/P left inguinal herniorrhaphy Family History Family History Mother Diabetes mellitus Social History Social History Smoking status: Current every day smoker Tobacco type: e-cigarettes/vaping Alcohol intake: current Alcohol use details: Rarely uses Substance use type: does not use Living arrangements: with family Gender identity (if verbalized by the patient): Male Comments At time of signature, agree with nursing past medical, surgical, social and family history. There is no relevant family history pertinent to the presenting complaint Exam Narrative: GENERAL: Well-appearing, well-nourished, and in no acute distress. HEAD: Normocephalic EYES: PERRLA, conjunctivae clear ENT: Nares clear, turbinates edematous and erythematous, yellow discharge, sinus pressure and frontal headache,. Mucous membranes moist. TM pearly perales with dull light reflex bilaterally; no tragal tenderness. Oropharynx erythematous without lesions. Tonsils not enlarged and without exudate, no drooling, no hoarseness, no trismus, uvula midline.post nasal drainage noted NECK: Supple. No lymphadenopathy CHEST: Clear to auscultation, breath sounds equal. No wheezing, rhonchi, rales, or stridor. No respiratory distress, speaks in full sentences.occa
== END 2024-02-12 14:48 | disposition home or self-care (01) ==
PROVIDERS: Emergency Provider Registered Nurse
DX: J01.80 Other acute sinusitis (principal); B96.89 Other specified bacterial agents as the cause of diseases classified elsewhere; J45.909 Unspecified asthma, uncomplicated; K21.9 Gastro-esophageal reflux disease without esophagitis; F17.290 Nicotine dependence, other tobacco product, uncomplicated
CPT/HCPCS: 99213; G0463

== ENCOUNTER 2024-03-21 19:08 | Emergency (ER) | payer OTHER, SELFPAY ==
[2024-03-21 19:17] VITALS: BP 140/89; PULSE 79; RESP 16; TEMP 36.9; O2SAT 100
--- NOTE | 2024-03-25 00:05 | ED.GENADULT ---
HPI - General Adult General Chief complaint: Medical Clearance Stated complaint: got overheated/check up for work Time Seen by Provider: 03/21/24 19:34 Source: patient, RN notes reviewed and old records reviewed Mode of arrival: ambulatory Limitations: no limitations History of Present Illness HPI narrative: 38-year-old male to [facility] complaint getting overheated at work today. 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 Patient reports he believes that he had enough to drink and could feel and getting overheated. Patient states that when relating to recruit to sit to stop in vomit a trash can. 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 Patient denies any recent illness, fever, nausea, abdominal pain, bowel changes, urinary changes, dizziness, pertinent medical history. Respirations even and non labored. Patient able to speak in complete sentences without difficulty. Related Data Home Medications Medication Instructions Recorded Confirmed albuterol sulfate 90 mcg/actuation 1 puff inhalation Q4-6H 11/23/23 02/12/24 aerosol inhaler pantoprazole 40 mg tablet,delayed 40 mg PO DAILY 11/23/23 02/12/24 release Allergies Allergy/AdvReac Type Severity Reaction Status Date / Time No Known Allergies Allergy Verified 02/12/24 13:57 Review of Systems Review of Systems: All systems reviewed & are unremarkable except as noted in HPI and below Constitutional: Constitutional: Reports as per HPI, Denies body ache(s), Denies chills, Denies excessive sweating, Denies fatigue, Denies fever(s), Denies headache(s), Denies malaise and Denies weakness Eyes: Eyes: Reports no additional eye complaints ENT: Reports system reviewed and no additional complaints, except as documented Cardiovascular: Cardiovascular: Reports no additional cardiovascular complaints, Denies chest pain and Denies dyspnea Respiratory: Respiratory: Reports no additional respiratory complaints, Denies cough and Denies dyspnea Gastrointestinal: Gastrointestinal: Reports as per HPI, Denies abdominal pain, Denies diarrhea, Denies nausea and Denies vomiting Musculoskeletal: Musculoskeletal: Reports no additional musculoskeletal complaints Neurologic: Reports as per HPI, Denies Abnormal speech present, Denies confusion, Denies vertigo, Denies dizziness, Denies syncope, Denies headache(s), Denies loss of vision, Denies numbness, Denies Sensory deficit (Neuro), Denies tingling and Denies weakness Psychiatric: Psychiatric: Reports no additional psychiatric complaints PMFSH Past Medical History Medical History Asthma GERD (gastroesophageal reflux disease) History of sinus problem Tachycardia Undescended testicle, unilateral Surgical History Surgical History H/O right wrist surgery ORIF fracture S/P left inguinal herniorrhaphy Family History Family History Mother Diabetes mellitus Social History Social History Smoking status: Current every day smoker Tobacco type: e-cigarettes/vaping Alcohol intake: current Alcohol use details: Rarely uses Substance use type: does not use Living arrangements: with family Gender identity (if verbalized by the patient): Male Comments At the time of my signature, I reviewed and agree with the nursing past medical, surgical, social, and family history. There is no relevant family history pertinent to the patient complaint. Exam Const: General: cooperative, healthy appearing, comfortable, no acute distress, alert and well nourished Nutritional Appearance: well nourished Orientation/consciousness: patient oriented x3 Limitations: no limitations HENMT: Head: normal to inspection Ears
== END 2024-03-21 20:20 | disposition home or self-care (01) ==
PROVIDERS: Emergency Provider Nurse Practitioner Family
DX: R11.10 Vomiting, unspecified (principal); T67.9XXA Effect of heat and light, unspecified, initial encounter; F17.290 Nicotine dependence, other tobacco product, uncomplicated; J45.909 Unspecified asthma, uncomplicated; K21.9 Gastro-esophageal reflux disease without esophagitis
CPT/HCPCS: 99211; G0463

== ENCOUNTER 2024-04-09 10:22 | Emergency (ER) | payer OTHER, SELFPAY ==
[2024-04-09 10:32] VITALS: BP 123/76; PULSE 81; RESP 16; TEMP 36.5; O2SAT 100
--- NOTE | 2024-04-09 11:10 | ED.EAR ---
HPI - Ear Problem General Chief complaint: Ear Stated complaint: Left Ear Problem Time Seen by Provider: 04/09/24 10:45 Source: patient, family, RN notes reviewed and old records reviewed Mode of arrival: ambulatory Limitations: no limitations History of Present Illness HPI Narrative: 38 year old male accompanied by family presents to [facility] care with complaints of bilateral ear pain, with left ear worse than right,cough and some vertigo/dizziness for 2 days.. Patient reports that ears feel clogged and he has some decreased hearing, reports he does wear ear plugs at work. Patient denies any sinus congestion or drainage, no headache pain, denies any shortness of breath, nausea vomiting or diarrhea. Patient has not taken any medications for his symptoms. States going to [facility]. MD Complaint: ear pain and decreased hearing Location: bilateral Duration: constant Severity: mild Discharge from ear: Reports no Treatment prior to arrival: none Related Data Home Medications Medication Instructions Recorded Confirmed albuterol sulfate 90 mcg/actuation 1 puff inhalation Q4-6H 11/23/23 02/12/24 aerosol inhaler pantoprazole 40 mg tablet,delayed 40 mg PO DAILY 11/23/23 02/12/24 release Allergies Allergy/AdvReac Type Severity Reaction Status Date / Time No Known Allergies Allergy Verified 04/09/24 10:25 Review of Systems Review of Systems: CONSTITUTIONAL: Denies malaise, chills, sweats, or fever. EYES: Denies visual changes, redness, or discharge. ENT: Reports no acute rhinorrhea, congestion, no sinus pain, bilateral otalgia and no sore throat. CARDIOVASCULAR: Denies chest pain, palpitations, or edema. RESPIRATORY: Reports cough.? Denies dyspnea. GASTROINTESTINAL: Denies abdominal pain, nausea, vomiting, diarrhea SKIN: Denies rash or itching. MUSCULOSKELETAL: Denies myalgia. NEUROLOGIC: Denies headache, states some vertigo/dizziness. All systems reviewed & are unremarkable except as noted in HPI and below PMFSH Past Medical History Medical History Asthma GERD (gastroesophageal reflux disease) History of sinus problem Tachycardia Undescended testicle, unilateral Surgical History Surgical History H/O right wrist surgery ORIF fracture S/P left inguinal herniorrhaphy Family History Family History Mother Diabetes mellitus Social History Social History Smoking status: Current every day smoker Tobacco type: e-cigarettes/vaping Alcohol intake: current Alcohol use details: Rarely uses Substance use type: does not use Living arrangements: with family Gender identity (if verbalized by the patient): Male Comments At time of signature, agree with nursing past medical, surgical, social and family history. There is no relevant family history pertinent to the presenting complaint Exam Narrative: GENERAL: Well-appearing, well-nourished, and in no acute distress. HEAD: Normocephalic EYES: PERRLA, conjunctivae clear ENT: Nares clear, turbinates edematous and erythematous, scant clear discharge. Mucous membranes moist. TM pearly perales with dull light reflex bilaterally; no tragal tenderness. left ear canal irritated no drainage, some soft wax in ear. Oropharynx erythematous without lesions. Tonsils not enlarged and without exudate, no drooling, no hoarseness, no trismus, uvula midline. NECK: Supple. No lymphadenopathy CHEST: Clear to auscultation, breath sounds equal. No wheezing, rhonchi, rales, or stridor. No respiratory distress, speaks in full sentences.occasional dry cough SAO2 100% on room air HEART: Regular rate and rhythm. No murmur heard. SKIN: Warm, dry, no rash. NEURO: Alert and oriented x3. gait steady denies any present dizziness/vertigo
== END 2024-04-09 11:18 | disposition home or self-care (01) ==
PROVIDERS: Emergency Provider Registered Nurse; PCP Physician Assistant
DX: H60.92 Unspecified otitis externa, left ear (principal); F17.290 Nicotine dependence, other tobacco product, uncomplicated; J45.909 Unspecified asthma, uncomplicated; K21.9 Gastro-esophageal reflux disease without esophagitis
CPT/HCPCS: 99213; G0463

== ENCOUNTER 2024-04-14 15:21 | Emergency (ER) | payer OTHER, SELFPAY ==
[2024-04-14 15:24] VITALS: BP 130/87; PULSE 80; RESP 16; TEMP 37.1; O2SAT 99
--- NOTE | 2024-04-14 16:27 | ED.EAR ---
HPI - Ear Problem General Chief complaint: Ear Stated complaint: ear pain Time Seen by Provider: 04/14/24 16:14 Source: patient and RN notes reviewed Mode of arrival: ambulatory Limitations: no limitations History of Present Illness HPI Narrative: Patient presents today complaining of bilateral ear pressure that has been ongoing as well as dizziness that started today. Associated symptoms include some postnasal drainage and cough. Patient was seen at [facility] 5 days ago and diagnosed with otitis externa and started on ofloxacin drops. These do not seem to be helpful. He has also been using Debrox drops which have cleared some cerumen from his canal. He wanted to come in for further evaluation due to changing symptoms. Related Data Home Medications Medication Instructions Recorded Confirmed albuterol sulfate 90 mcg/actuation 1 puff inhalation Q4-6H 11/23/23 04/14/24 aerosol inhaler pantoprazole 40 mg tablet,delayed 40 mg PO DAILY 11/23/23 04/14/24 release Allergies Allergy/AdvReac Type Severity Reaction Status Date / Time No Known Allergies Allergy Verified 04/09/24 10:25 Review of Systems Review of Systems: CONSTITUTIONAL: Denies body aches, fever, chills, or sweats. EYES: Denies visual changes, redness, or discharge. ENT: Denies rhinorrhea, congestion, sore throat. + bilateral ear pressure, postnasal drip CARDIOVASCULAR: Denies chest pain, palpitations, or edema. RESPIRATORY: Denies dyspnea.+ cough GASTROINTESTINAL: Denies abdominal pain, nausea, vomiting, or diarrhea. GENITOURINARY: Denies dysuria or hematuria. SKIN: Denies rash, itching, or wounds. MUSCULOSKELETAL: Denies back pain, joint pain, or myalgia. NEUROLOGIC: Denies headache, numbness, tingling, or weakness.+ dizziness PSYCH: Denies depression or anxiety. [facility] Past Medical History Medical History Asthma GERD (gastroesophageal reflux disease) History of sinus problem Tachycardia Undescended testicle, unilateral Surgical History Surgical History H/O right wrist surgery ORIF fracture S/P left inguinal herniorrhaphy Family History Family History Mother Diabetes mellitus Social History Social History Smoking status: Current every day smoker Tobacco type: e-cigarettes/vaping Alcohol intake: current Alcohol use details: Rarely uses Substance use type: does not use Living arrangements: with family Gender identity (if verbalized by the patient): Male Comments At time of signature, I have reviewed and agree with nursing past medical, surgical, social and family history unless otherwise noted. Please see nursing chart for further information. There is no relevant family history pertinent to the presenting complaint Exam Narrative: GENERAL: Well-appearing, well-nourished, and in no acute distress. HEAD: Normocephalic, atraumatic. EYES: EOMI. No nystagmus. No redness or drainage. Conjunctivae normal. ENT: Mucous membranes pink and moist. Nares clear. No rhinorrhea. Right TM and canal normal. Left TM erythematous. Canal normal. Throat normal. Uvula midline. NECK: Normal AROM. Supple. No lymphadenopathy. CHEST: No respiratory distress. Clear to auscultation. HEART: Regular rate and rhythm. No murmur appreciated. EXTREMITIES: Normal range of motion. No edema. SKIN: Warm, dry, no rash. Capillary refill normal. Normal skin turgor. NEURO: No focal deficits. Alert and oriented x3. Gait steady. PSYCH: Normal affect. No signs of depression or anxiety. Course Course Level of Care: Express Care Visit Vital Signs Vital signs: Vital Signs Temperature 98.8 F 04/14/24 15:24 Pulse Rate 80 04/14/24 15:24 Respiratory Rate 16 04/14/24 15:24 Blood Pressure
== END 2024-04-14 16:34 | disposition home or self-care (01) ==
PROVIDERS: Emergency Provider Nurse Practitioner; PCP Physician Assistant
DX: H66.92 Otitis media, unspecified, left ear (principal); F17.290 Nicotine dependence, other tobacco product, uncomplicated; J45.909 Unspecified asthma, uncomplicated; K21.9 Gastro-esophageal reflux disease without esophagitis
CPT/HCPCS: 99213; G0463

== ENCOUNTER 2024-04-25 19:26 | Emergency (ER) | payer OTHER, SELFPAY ==
[2024-04-25 19:32] VITALS: BP 124/72; PULSE 100; RESP 20; TEMP 36.6; O2SAT 98
--- NOTE | 2024-04-25 19:34 | ED.NAVMDI ---
HPI - Nausea/Vomiting/Diarrhea General Chief complaint: Nausea/Vomiting/Diarrhea Stated complaint: Vomiting/Diarrhea/Body Aches Time Seen by Provider: 04/25/24 19:35 Source: patient, RN notes reviewed and old records reviewed Mode of arrival: ambulatory Limitations: no limitations History of Present Illness HPI Narrative: 38 year old male presents to express care with significant other with complaints of awakening this morning and vomiting X2 and then he has had diarrhea constantly all day. Patient reports that he has not been able to eat today he has drank water and Gatorade and did eat a few saltines only. Patient reports that he has not had any known fever, does reports some body aches. Patient reports that significant other and her daughter both had COVID a week ago. Patient also reports that he has been exposed to someone with GI issues similar to his last week.Patient denies any blood noted to stools or to vomit, denies any abdominal pain MD elicited complaint: vomiting and diarrhea Pertinent past history: other (gerd) Onset (ago): hour(s) (since awakening this morning) Description of vomiting: food contents Description of diarrhea: watery Associated nausea: Yes Associated abdominal pain: No Treatment prior to arrival: other (Tylenol) Related Data Home Medications Medication Instructions Recorded Confirmed albuterol sulfate 90 mcg/actuation 1 puff inhalation Q4-6H 11/23/23 04/14/24 aerosol inhaler pantoprazole 40 mg tablet,delayed 40 mg PO DAILY 11/23/23 04/14/24 release Allergies Allergy/AdvReac Type Severity Reaction Status Date / Time No Known Allergies Allergy Verified 04/09/24 10:25 Review of Systems Review of Systems: CONSTITUTIONAL: Denies any known fever,states some chills, or sweats. EYES: Denies visual changes, redness, or discharge. ENT: Denies rhinorrhea, congestion, sore throat, or otalgia. CARDIOVASCULAR: Denies chest pain, palpitations, or edema. RESPIRATORY: Denies cough or dyspnea. GASTROINTESTINAL: Denies abdominal pain, positive for nausea, vomiting, or diarrhea. GENITOURINARY: Denies dysuria or hematuria. SKIN: Denies rash or itching. MUSCULOSKELETAL: Denies back pain, joint pain, or myalgia. NEUROLOGIC: Denies headache, numbness, or weakness. PSYCHIATRIC: Denies anxiety or depression. All systems reviewed & are unremarkable except as noted in HPI and below PMFSH Past Medical History Medical History Asthma GERD (gastroesophageal reflux disease) History of sinus problem Tachycardia Undescended testicle, unilateral Surgical History Surgical History H/O right wrist surgery ORIF fracture S/P left inguinal herniorrhaphy Family History Family History Mother Diabetes mellitus Social History Social History Smoking status: Current every day smoker Tobacco type: e-cigarettes/vaping Alcohol intake: current Alcohol use details: Rarely uses Substance use type: does not use Living arrangements: with family Gender identity (if verbalized by the patient): Male Comments At time of signature, agree with nursing past medical, surgical, social and family history. There is no relevant family history pertinent to the presenting complaint Exam Narrative: GENERAL: Well-appearing, well-nourished, and in no acute distress. HEAD: Normocephalic, atraumatic. EYES: PERRLA and EOMI. ENT: Nares clear, no rhinorrhea or epistaxis. Mucous membranes moist. NECK: Supple.no lymphadenopathy CHEST: Clear to auscultation. No respiratory distress.SAO2 98% on room air HEART: Regular rate and rhythm. No murmur heard. Normal peripheral pulses. ABDOMEN: Soft, nontender, nondistended, normal active bowel sounds.diarrhea continues no further emesis since this morning EXTREMI
== END 2024-04-25 20:10 | disposition home or self-care (01) ==
PROVIDERS: Emergency Provider Registered Nurse; PCP Physician Assistant
DX: A08.4 Viral intestinal infection, unspecified (principal); Z20.822 Contact with and (suspected) exposure to COVID-19; F17.290 Nicotine dependence, other tobacco product, uncomplicated; J45.909 Unspecified asthma, uncomplicated; K21.9 Gastro-esophageal reflux disease without esophagitis
CPT/HCPCS: 87426; 99213; G0463

== ENCOUNTER 2024-04-26 18:47 | Emergency (ER) | payer OTHER, SELFPAY ==
[2024-04-26 18:57] VITALS: BP 134/88; PULSE 84; RESP 18; TEMP 36.6; O2SAT 99
[2024-04-26 19:03] VITALS: BP 134/88; PULSE 84; RESP 18; TEMP 36.6; O2SAT 99
--- NOTE | 2024-04-26 19:09 | ED.NAVMDI ---
HPI - Nausea/Vomiting/Diarrhea General Chief complaint: Unspecified Stated complaint: needs work note Time Seen by Provider: 04/26/24 19:09 Source: patient and RN notes reviewed Mode of arrival: ambulatory Limitations: no limitations History of Present Illness HPI Narrative: 38-year-old male presents with concern for return to work after an illness. Reports he has had nausea, vomiting, diarrhea for several days, he was seen yesterday. Reports the symptoms have improved greatly, he has not vomited or had diarrhea since last night. He reports he has been able to eat and drink today. Reports he has been urinating once every 8 hours. He reports he has to have a note to go back to work. MD elicited complaint: nausea, vomiting and diarrhea Related Data Home Medications Medication Instructions Recorded Confirmed albuterol sulfate 90 mcg/actuation 1 puff inhalation Q4-6H 11/23/23 04/26/24 aerosol inhaler pantoprazole 40 mg tablet,delayed 40 mg PO DAILY 11/23/23 04/26/24 release Allergies Allergy/AdvReac Type Severity Reaction Status Date / Time No Known Allergies Allergy Verified 04/26/24 19:03 Review of Systems Review of Systems: CONSTITUTIONAL: Denies malaise, chills, sweats, or fever. GASTROINTESTINAL: Denies abdominal pain, nausea, vomiting, diarrhea, bloody, or mucous stools. GENITOURINARY: Denies dysuria or hematuria. MUSCULOSKELETAL: Denies myalgia. NEUROLOGIC: Denies headache. All systems reviewed & are unremarkable except as noted in HPI and below PMFSH Past Medical History Medical History Asthma GERD (gastroesophageal reflux disease) History of sinus problem Tachycardia Undescended testicle, unilateral Surgical History Surgical History H/O right wrist surgery ORIF fracture S/P left inguinal herniorrhaphy Family History Family History Mother Diabetes mellitus Social History Social History Smoking status: Current every day smoker Tobacco type: e-cigarettes/vaping Alcohol intake: current Alcohol use details: Rarely uses Substance use type: does not use Living arrangements: with family Gender identity (if verbalized by the patient): Male Comments At time of signature, agree with nursing past medical, surgical, social and family history. There is no relevant family history pertinent to the presenting complaint Exam Narrative: GENERAL: Well-appearing, well-nourished, and in no acute distress. HEAD: Normocephalic, atraumatic. EYES: PERRLA, conjunctivae clear, and EOMI. ENT: Nares clear. Mucous membranes moist. NECK: Supple. No lymphadenopathy CHEST: Speaks in full sentences. No respiratory distress. HEART: Regular rate and rhythm. SKIN: Warm, dry, no rash. NEURO: Alert and oriented x3. PSYCH: Normal mood and affect Course Course Emergency Course: Patient is aware of diagnosis, understands and agrees to treatment plan. Anticipatory guidance given. Patient agrees to follow-up as directed and is aware of reasons to seek care at the emergency department. Portions of this record may have been created with voice recognition software Level of Care: Express Care Visit Vital Signs Vital signs: Vital Signs Temperature 97.8 F 04/26/24 18:57 Pulse Rate 84 04/26/24 18:57 Respiratory Rate 18 04/26/24 18:57 Blood Pressure 134/88 04/26/24 18:57 Pulse Oximetry 99 04/26/24 18:57 Oxygen Delivery Room Air 04/26/24 18:57 Temperature 97.8 F 04/26/24 19:03 Pulse Rate 84 04/26/24 19:03 Respiratory Rate 18 04/26/24 19:03 Blood Pressure 134/88 04/26/24 19:03 Pulse Oximetry 99 04/26/24 19:03 Oxygen Delivery Room Air 04/26/24 19:03 Reviewed. MDM - Nausea/Vomiting/Diarrhea MDM Narrative Medical decision
== END 2024-04-26 19:15 | disposition home or self-care (01) ==
PROVIDERS: Emergency Provider Nurse Practitioner; PCP Physician Assistant
DX: R11.2 Nausea with vomiting, unspecified (principal); R19.7 Diarrhea, unspecified; F17.290 Nicotine dependence, other tobacco product, uncomplicated; J45.909 Unspecified asthma, uncomplicated; K21.9 Gastro-esophageal reflux disease without esophagitis
CPT/HCPCS: 99211; G0463

== ENCOUNTER 2024-06-15 14:11 | Emergency (ER) | payer OTHER, SELFPAY ==
[2024-06-15 14:24] VITALS: BP 122/80; PULSE 74; RESP 16; TEMP 37; O2SAT 98
[2024-06-15 14:28] VITALS: BP 122/80; PULSE 74; RESP 16; TEMP 37; O2SAT 98
--- NOTE | 2024-06-15 14:42 | ED.NAVMDI ---
HPI - Nausea/Vomiting/Diarrhea General Chief complaint: Nausea/Vomiting/Diarrhea Stated complaint: Vomiting/Diarrhea Time Seen by Provider: 06/15/24 14:43 Source: patient and RN notes reviewed Mode of arrival: ambulatory Limitations: no limitations History of Present Illness HPI Narrative: 39-year-old male presents with concern for vomiting and diarrhea. Reports he has had diarrhea about 3 times a day for the past 3 or 4 days. Reports he had 1 episode of vomiting today. He denies fever, body aches, sweats. Reports 1 episode of chills right after he vomited today. He denies any abdominal pain. Reports history of IBS MD elicited complaint: vomiting and diarrhea Related Data Home Medications Medication Instructions Recorded Confirmed albuterol sulfate 90 mcg/actuation 1 puff inhalation Q4-6H 11/23/23 06/15/24 aerosol inhaler pantoprazole 40 mg tablet,delayed 40 mg PO DAILY 11/23/23 06/15/24 release Allergies Allergy/AdvReac Type Severity Reaction Status Date / Time No Known Allergies Allergy Verified 06/15/24 14:27 Review of Systems Review of Systems: CONSTITUTIONAL: Denies malaise, chills, sweats, or fever. ENT: Denies rhinorrhea, congestion, sinus pain, otalgia or sore throat. CARDIOVASCULAR: Denies chest pain, palpitations, or edema. RESPIRATORY: Denies cough or dyspnea. GASTROINTESTINAL: Denies abdominal pain, bloody, or mucous stools. Reports diarrhea and 1 episode of vomiting GENITOURINARY: Denies dysuria or hematuria. MUSCULOSKELETAL: Denies myalgia. NEUROLOGIC: Denies headache. All systems reviewed & are unremarkable except as noted in HPI and below PMFSH Past Medical History Medical History Asthma GERD (gastroesophageal reflux disease) History of sinus problem Tachycardia Undescended testicle, unilateral Surgical History Surgical History H/O right wrist surgery ORIF fracture S/P left inguinal herniorrhaphy Family History Family History Mother Diabetes mellitus Social History Social History Smoking status: Current every day smoker Tobacco type: e-cigarettes/vaping Alcohol intake: current Alcohol use details: Rarely uses Substance use type: does not use Living arrangements: with family Gender identity (if verbalized by the patient): Male Comments At time of signature, agree with nursing past medical, surgical, social and family history. There is no relevant family history pertinent to the presenting complaint Exam Narrative: GENERAL: Well-appearing, well-nourished, and in no acute distress. HEAD: Normocephalic, atraumatic. EYES: PERRLA, conjunctivae clear, and EOMI. ENT: Nares clear, turbinates pink, no rhinorrhea or epistaxis. Mucous membranes moist. Oropharynx without edema, erythema, or lesions. Tonsils not enlarged and without exudate. NECK: Supple. No lymphadenopathy CHEST: Speaks in full sentences. No respiratory distress. HEART: Regular rate and rhythm. ABDOMEN: Soft, round, nondistended, nontender. No guarding, rebound tenderness, or rigidity. No pulsatile masses. Bowel sounds present in all four quadrants. No organomegaly. Negative Walker?s sign. No periumbilical tenderness. SKIN: Warm, dry, no rash. NEURO: Alert and oriented x3. PSYCH: Normal mood and affect Course Course Emergency Course: Patient is aware of diagnosis, understands and agrees to treatment plan. Anticipatory guidance given. Patient agrees to follow-up as directed and is aware of reasons to seek care at the emergency department. Portions of this record may have been created with voice recognition software Level of Care: Express Care Visit Vital Signs Vital signs: Vital Signs Temperature 98.6 F 06/15/24 14:24 Pulse Rate 74 06/15/24 14:24 Res
== END 2024-06-15 14:55 | disposition home or self-care (01) ==
PROVIDERS: Emergency Provider Nurse Practitioner; PCP Physician Assistant
DX: R19.7 Diarrhea, unspecified (principal); R11.2 Nausea with vomiting, unspecified; J45.909 Unspecified asthma, uncomplicated; K21.9 Gastro-esophageal reflux disease without esophagitis; F17.290 Nicotine dependence, other tobacco product, uncomplicated
CPT/HCPCS: 99211; G0463

== ENCOUNTER 2024-07-20 13:00 | Emergency (ER) | payer OTHER, SELFPAY ==
[2024-07-20 13:07] VITALS: BP 112/75; PULSE 79; RESP 16; TEMP 37.1; O2SAT 99
--- NOTE | 2024-07-20 13:12 | ED.GENADULT ---
HPI - General Adult General Stated complaint: Headache Time Seen by Provider: 07/20/24 13:12 Source: patient Mode of arrival: ambulatory Limitations: no limitations History of Present Illness HPI narrative: 39 yo M presents with c/o migraine. States normal migraine for him . No new symptoms. Gets one to two migraines a year. Takes ibuprofen or tylenol or pain. Still had a little bit of pain this AM so called into work. Was able to finish his shift yesterday when migraine first started. Pain 01/12. Requesting work note. all systems reviewed and negative except as noted above. Related Data Home Medications Medication Instructions Recorded Confirmed albuterol sulfate 90 mcg/actuation 1 puff inhalation Q4-6H 11/23/23 06/15/24 aerosol inhaler pantoprazole 40 mg tablet,delayed 40 mg PO DAILY 11/23/23 06/15/24 release Allergies Allergy/AdvReac Type Severity Reaction Status Date / Time No Known Allergies Allergy Verified 06/15/24 14:27 Review of Systems Review of Systems: CONSTITUTIONAL: Denies fever, chills, or sweats. EYES: Denies visual changes, redness, or discharge. ENT: Denies rhinorrhea, congestion, sore throat, or otalgia. CARDIOVASCULAR: Denies chest pain, palpitations, or edema. RESPIRATORY: Denies cough or dyspnea. GASTROINTESTINAL: Denies abdominal pain, nausea, vomiting, or diarrhea. GENITOURINARY: Denies dysuria or hematuria. SKIN: Denies rash or itching. MUSCULOSKELETAL: Denies back pain, joint pain, or myalgia. NEUROLOGIC: Reports headache. Denies numbness, or weakness. PSYCHIATRIC: Denies anxiety or depression. All other systems reviewed are negative, except as documented in HPI. [facility] Past Medical History Medical History Asthma GERD (gastroesophageal reflux disease) History of sinus problem Tachycardia Undescended testicle, unilateral Surgical History Surgical History H/O right wrist surgery ORIF fracture S/P left inguinal herniorrhaphy Family History Family History Mother Diabetes mellitus Social History Social History (Reviewed 04/25/24 @ 20:16 by KEYSHA Hauser Smoking status: Current every day smoker Tobacco type: e-cigarettes/vaping Alcohol intake: current Alcohol use details: Rarely uses Substance use type: does not use Living arrangements: with family Gender identity (if verbalized by the patient): Male Comments At time of signature, agree with nursing past medical, surgical, social and family history. There is no relevant family history pertinent to the presenting complaint. Exam Narrative: GENERAL: This is a well-nourished, well-developed patient, in no apparent distress. HEAD: normocephalic, atraumatic. EYES: PERRL. Sclera clear/white. Vision is grossly intact. extraocular motions intact EARS: External ears normal NOSE: External nose normal NECK: Neck supple, non-tender without lymphadenopathy, masses or thyromegaly. CARDIOVASCULAR: Regular rate and rhythm without murmurs, gallops, or rubs. RESPIRATORY: Clear to auscultation. Breath sounds equal bilaterally. No wheezes, rales, or rhonchi. SKIN: warm, Dry, intact with no suspicious lesions or rash, good texture and turgor. NEURO: awake, alert, and oriented to person, place and time. There were no obvious focal neurologic abnormalities. EXTREMITIES: No joint tenderness, effusion, or edema noted. Course Course Level of Care: Express Care Visit Vital Signs Vital signs: Vital Signs Temperature 37.1 C 07/20/24 13:07 Pulse Rate 79 07/20/24 13:07 Respiratory Rate 16 07/20/24 13:07 Blood Pressure 112/75 07/20/24 13:07 Pulse Oximetry 99 07/20/24 13:07 Oxygen Delivery Room Air 07/20/24 13:07 Temperature 37.1 C 07/20/24 13:07 Pulse Rate 79 07/20/24 13:07 Respiratory Rate 16
== END 2024-07-20 13:26 | disposition home or self-care (01) ==
PROVIDERS: Emergency Provider Nurse Practitioner Family; PCP Physician Assistant
DX: G43.909 Migraine, unspecified, not intractable, without status migrainosus (principal); J45.909 Unspecified asthma, uncomplicated; K21.9 Gastro-esophageal reflux disease without esophagitis
CPT/HCPCS: 99213; G0463

== ENCOUNTER 2024-08-05 17:43 | Emergency (ER) | payer OTHER, SELFPAY ==
--- NOTE | ~2024-08-05 | XR_ITS ---
XR chest 2V Ordering provider: Angelica Zhong NP History: 39 years Male with . Cough . Comparison: March 27, 2023 FINDINGS: MEDIASTINUM: The cardiac silhouette is not enlarged. LUNGS: No infiltrates, effusions or pneumothorax. OTHER: No free air under the diaphragm. IMPRESSION: No acute cardiopulmonary pathology. Reviewed, dictated and finalized at location A.
--- NOTE | 2024-08-05 17:49 | ED_ITS ---
HPI - URI/Sore Throat General Chief Complaint: Upper Respiratory Infection Stated Complaint: Sinus Pressure/Congestion/Body Aches Time Seen by Provider: 08/05/24 18:10 Source: patient and RN notes reviewed Mode of arrival: ambulatory Limitations: no limitations History of Present Illness HPI Narrative: 39-year-old male presents with concern of for sinus pressure, cough, burning in his lungs and throat, headache. Reports he has been on Augmentin for 2 days for a tooth infection. He denies taking any [id number] medication for his symptoms. MD elicited complaint: cough and nasal congestion Related Data Home Medications Medication Instructions Recorded Confirmed albuterol sulfate 90 mcg/actuation 1 puff inhalation Q4-6H 11/23/23 08/05/24 aerosol inhaler amoxicillin 875 mg-potassium 1 tablet PO BID 08/05/24 08/05/24 clavulanate 125 mg tablet celecoxib 100 mg capsule 100 mg PO BID 08/05/24 08/05/24 Allergies Allergy/AdvReac Type Severity Reaction Status Date / Time No Known Allergies Allergy Verified 08/05/24 17:48 Review of Systems Review of Systems: CONSTITUTIONAL: Denies malaise, sweats, or fever. Reports chills EYES: Denies visual changes, redness, or discharge. ENT: Reports rhinorrhea, congestion, sinus pain, and sore throat. CARDIOVASCULAR: Denies chest pain, palpitations, or edema. RESPIRATORY: Reports cough. Denies dyspnea. GASTROINTESTINAL: Denies abdominal pain, nausea, vomiting, diarrhea SKIN: Denies rash or itching. MUSCULOSKELETAL: Denies myalgia. NEUROLOGIC: Reports headache. All systems reviewed & are unremarkable except as noted in HPI and below PMFSH Past Medical History Medical History Asthma GERD (gastroesophageal reflux disease) History of sinus problem Tachycardia Undescended testicle, unilateral Surgical History Surgical History H/O right wrist surgery ORIF fracture S/P left inguinal herniorrhaphy Family History Family History Mother Diabetes mellitus Social History Social History Smoking status: Current every day smoker Tobacco type: e-cigarettes/vaping Alcohol intake: current Alcohol use details: Rarely uses Substance use type: does not use Living arrangements: with family Gender identity (if verbalized by the patient): Male Comments At time of signature, agree with nursing past medical, surgical, social and family history. There is no relevant family history pertinent to the presenting complaint Exam Narrative: GENERAL: Well-appearing, well-nourished, and in no acute distress. HEAD: Normocephalic EYES: PERRLA, conjunctivae clear ENT: Nares clear. Mucous membranes moist. TM pearly perales with sharp light reflex bilaterally; no tragal tenderness. Oropharynx erythematous without lesions. Ton sils not enlarged and without exudate, no drooling, no hoarseness, no trismus, uvula midline. NECK: Supple. No lymphadenopathy CHEST: Possible mild crackles in the left lower lobe, otherwise Clear to auscultation, breath sounds equal. No wheezing, rhonchi, rales, or stridor. No respiratory distress, speaks in full sentences. HEART: Regular rate and rhythm. No murmur heard. SKIN: Warm, dry, no rash. NEURO: Alert and oriented x3. PSYCH: Normal mood and affect Course Course Emergency Course: Patient is aware of diagnosis, understands and agrees to treatment plan. Anticipatory guidance given. Patient agrees to follow-up as directed and is aware of reasons to seek care at the emergency department. Portions of this record may have been created with voice recognition software Level of Care: Express Care Visit Vital Signs Vital signs: Reviewed. MDM - URI/Sore Throat MDM Narrative Medical decision making narrative: Differential diagnosis considered: Albrecht virus, strep pharyngitis, allergic rhinitis, upper respiratory tract infection, sinusitis, rhinosinusitis, nasopharyngitis. viral pharyngitis, otitis media, otitis externa, pneumonia, bronchitis, viral cough syndrome, viral syndrome, and influenza. Exam findings show no acute concerns or changes; patient is non-toxic appearing and is in no distress. Patient is appropriate for outpatient treatment and follow-up. Lab Data Attestation: I reviewed the patient's lab results. Critical Care Time Critical Care Time Critical Care Time: No Discharge Plan Discharge Clinical Impression: Upper respiratory infection Patient Disposition: Home, Self-Care Condition: Stable Instructions: Upper Respiratory Infection (ED) Additional Instructions: Your chest x-ray is normal Your COVID and flu tests are negative Viral illness may last between 7-21 days; antibiotics do not cure viral illness and are NOT recommended at this time. Recommend antihistamine such as Benadryl at night time and Zyrtec or Ana during the day Also, recommend symptomatic treatment includes: rest, fluids, and increase humidity of the air at home. Recommend Acetaminophen as directed on the bottle to reduce fever, pain, headache. Avoid smoking/second-hand smoke. Please schedule a follow-up visit with your personal physician for further evaluation and treatment within 3-5days. Including recheck and discussion of your blood pressure. If your symptoms persist, change or worsen significantly before you can contact your personal physician then please, without delay, go to the emergency department for further evaluation. Prescriptions: New pseudoephedrine HCl [12 Hour Decongestant] 120 mg tablet extended release 120 mg PO Q12H PRN (Reason: nasal congestion) Qty: 20 0RF dextromethorphan-guaifenesin [Mucinex DM] 60-1,200 mg tablet extended release 12 hr 1 tablet PO Q12H Qty: 12 0RF No Action albuterol sulfate 90 mcg/actuation HFA aerosol inhaler 1 puff INHALATION Q4-6H celecoxib 100 mg capsule 100 mg PO BID amoxicillin-pot clavulanate 875-125 mg tablet 1 tablet PO BID Follow-up/Referrals: PHYSICIAN NOT ON STAFF,NONSTAFF [Primary Care Provider] - Time of Disposition: 18:35
[2024-08-05 17:50] VITALS: BP 120/82; PULSE 74; RESP 17; TEMP 36.8; O2SAT 100
[2024-08-05 18:17] LABS: EDCOVIDSCREEN Negative (Negative); EDINFLUASCREEN Negative (Negative); EDINFLUBSCREEN Negative (Negative)
== END 2024-08-05 18:37 | disposition home or self-care (01) ==
PROVIDERS: Emergency Provider Nurse Practitioner
DX: J06.9 Acute upper respiratory infection, unspecified (principal); Z20.822 Contact with and (suspected) exposure to COVID-19; F17.290 Nicotine dependence, other tobacco product, uncomplicated; J45.909 Unspecified asthma, uncomplicated; K21.9 Gastro-esophageal reflux disease without esophagitis
CPT/HCPCS: 71046; 87426; 87804; 99213; G0463

== ENCOUNTER 2024-10-24 15:23 | Emergency (ER) | payer OTHER, SELFPAY ==
[2024-10-24 15:28] VITALS: BP 131/83; PULSE 86; RESP 20; TEMP 37; O2SAT 99
--- NOTE | 2024-10-24 15:28 | ED_ITS ---
HPI - URI/Sore Throat General Chief Complaint: Upper Respiratory Infection Stated Complaint: cough/throat Time Seen by Provider: 10/24/24 15:47 Source: patient and RN notes reviewed Mode of arrival: ambulatory Limitations: no limitations History of Present Illness HPI Narrative: 39-year-old male presents with concern for productive cough, sore throat, ear pain and sinus pain. Reports symptoms started 3-4 days ago. Reports he had a tooth pulled 1 week ago and pain has gotten worse and he has had swelling, he has antibiotic from his dentist that he has not picked up yet. He reports he had a fever yesterday. MD elicited complaint: cough Related Data Home Medications ?Medication ?Instructions ?Recorded ?Confirmed ?Last Taken ?Type albuterol sulfate 90 mcg/actuation 1 puff inhalation Q4-6H 11/23/23 08/05/24 Unknown History aerosol inhaler hydrocodone 5 mg-acetaminophen 325 tablet 10/24/24 Unknown History mg tablet Allergies Allergy/AdvReac Type Severity Reaction Status Date / Time No Known Allergies Allergy Verified 10/24/24 15:35 Review of Systems Review of Systems: CONSTITUTIONAL: Reports malaise, fever. EYES: Denies visual changes, redness, or discharge. ENT: Reports rhinorrhea, congestion, sinus pain, otalgia and sore throat. CARDIOVASCULAR: Denies chest pain, palpitations, or edema. RESPIRATORY: Reports productive cough. Denies dyspnea. GASTROINTESTINAL: Denies abdominal pain, nausea, vomiting, diarrhea SKIN: Denies rash or itching. MUSCULOSKELETAL: Denies myalgia. NEUROLOGIC: Denies headache. All systems reviewed & are unremarkable except as noted in HPI and below PMFSH Past Medical History Medical History Asthma GERD (gastroesophageal reflux disease) History of sinus problem Tachycardia Undescended testicle, unilateral Surgical History Surgical History H/O right wrist surgery ORIF fracture S/P left inguinal herniorrhaphy Family History Family History Mother Diabetes mellitus Social History Social History Smoking status: Current every day smoker Tobacco type: e-cigarettes/vaping Alcohol intake: current Alcohol use details: Rarely uses Substance use type: does not use Living arrangements: with family Gender identity (if verbalized by the patient): Male Comments At time of signature, agree with nursing past medical, surgical, social and family history. There is no relevant family history pertinent to the presenting complaint Exam Narrative: GENERAL: Well-appearing, well-nourished, and in no acute distress. HEAD: Normocephalic EYES: PERRLA, conjunctivae clear ENT: Nares clear. Mucous membranes moist. TM pearly perales with sharp light reflex bilaterally; no tragal tenderness. Oropharynx not erythematous without lesions. Tonsils not enlarged and without exudate, no drooling, no hoarseness, no trismus, uvula midline. Right cheek swelling noted NECK: Supple. No lymphadenopathy CHEST: Clear to auscultation, breath sounds equal. No wheezing, rhonchi, rales, or stridor. No respiratory distress, speaks in full sentences. HEART: Regular rate and rhythm. No murmur heard. SKIN: Warm, dry, no rash. NEURO: Alert and oriented x3. PSYCH: Normal mood and affect Course Course Emergency Course: Patient is aware of diagnosis, understands and agrees to treatment plan. Anticipatory guidance given. Patient agrees to follow-up as directed and is aware of reasons to seek care at the emergency department. Portions of this record may have been created with voice recognition software Level of Care: Express Care Visit Vital Signs Vital signs: Reviewed. MDM - URI/Sore Throat MDM Narrative Medical decision making narrative: Differential diagnosis considered: Albrecht virus, strep pharyngitis, allergic rhinitis, upper respiratory tract infection, sinusitis, rhinosinusitis, nasopharyngitis. viral pharyngitis, otitis media, otitis externa, pneumonia, bronchitis, viral cough syndrome, viral syndrome, and influenza. Exam findings show no acute concerns or changes; patient is non-toxic appearing and is in no distress. Patient is appropriate for outpatient treatment and follow-up. Lab Data Attestation: I reviewed the patient's lab results. Critical Care Time Critical Care Time Critical Care Time: No Discharge Plan Discharge Clinical Impression: Cough Patient Disposition: Home, Self-Care Condition: Stable Instructions: Acute Cough (ED) Additional Instructions: Viral illness may last between 7-21 days Recommend antihistamine such as Benadryl at night time and Zyrtec or Ana during the day Also, recommend symptomatic treatment includes: rest, fluids, and increase humidity of the air at home. Recommend Acetaminophen as directed on the bottle to reduce fever, pain, headache. Avoid smoking/second-hand smoke. Please schedule a follow-up visit with your personal physician for further evaluation and treatment within 3-5days. If your symptoms persist, change or worsen significantly before you can contact your personal physician then please, without delay, go to the emergency department for further evaluation. Patient Language: Romanian Prescriptions: New methylprednisolone [Medrol (Ivan)] 4 mg tablets,dose pack See Rx Instructions .ROUTE .COMPLEX Qty: 21 0RF Rx Instructions: orally per package directions No Action albuterol sulfate 90 mcg/actuation HFA aerosol inhaler 1 puff INHALATION Q4-6H hydrocodone-acetaminophen 5-325 mg tablet Follow-up/Referrals: PHYSICIAN NOT ON STAFF,NONSTAFF [Primary Care Provider] - Stand Alone Forms: Work/School Release IP Time of Disposition: 15:52
[2024-10-24 15:54] LABS: EDSTREPNEGPOS1 Negative (Negative)
== END 2024-10-24 15:55 | disposition home or self-care (01) ==
PROVIDERS: Emergency Provider Nurse Practitioner
DX: R05.9 Cough, unspecified (principal); F17.290 Nicotine dependence, other tobacco product, uncomplicated; J45.909 Unspecified asthma, uncomplicated; K21.9 Gastro-esophageal reflux disease without esophagitis
CPT/HCPCS: 87081; 87880; 99213; G0463

== ENCOUNTER 2024-11-18 15:30 | Emergency (ER) | payer OTHER, SELFPAY ==
--- OUTSIDE RECORDS SUMMARY | 2024-11-18 15:33 | XMS_ITS | Referral Summary ---
Author Organization [facility] [employer] Address [address] [place] [address] Care Team Providers Care Regulatory Affairs Associate Name Role Phone Fran Vazquez MD Primary Care Provider [phone] Source Comments [facility],non-owned Affiliates and Associated Physician Practices is amultiple site organization consisting of ambulatory clinics and hospital sitesin [place] and [place]. This disclosure is being madepursuant to the Care Everywhere program and may not contain all information available regarding this patient. Last updated 18.[facility] Allergies No known active allergies Medications * Be aware that medications may not be up to date on this document. Alwaysverify current medications with the patient. Medication Sig Dispensed Refills Start Date End Date Status albuterol HFA (Proventil; Ventolin; Proair) 108 (90 Base) MCG/ACT inhaler Inhale 2 (two) puffs by mouth every 6 hours as needed Active vitamin D, ergocalciferol, (Drisdol) 1.25 MG (44114 UT) capsule Take 1 (one) capsule by mouth once daily 11/27/2022 Active pantoprazole EC (Protonix) 40 MG tablet Take 1 (one) tablet by mouth once daily 12/24/2022 Active fluticasone propionate (Flonase) 50 MCG/ACT nasal sprayIndications:Nasal obstruction,Rhinitis medicamentosa [place] 2 (two) sprays into each nostril once daily 16 g 3 02/03/2023 Active Active Problems Problem Noted Date Diagnosed Date Asthma 02/05/2023 02/05/2023 Deviated nasal septum 02/05/2023 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 Irritable bowel syndrome 02/19/2021 023 B12 deficiency 01/11/2021 02/05/2023 Hyperlipidemia 01/11/2021 02/05/2023 Vitamin D deficiency 01/11/2021 02/05/2023 Palpitations 11/30/2020 02/05/2023 Social History Tobacco Use Types Packs/Day Years Used Date Smoking Tobacco: Former Cigarettes Smokeless Tobacco: Never Tobacco Cessation:Counseling Given: Not Answered Alcohol Use Standard Drinks/Week Comments Yes 0 (1 standard drink = 0.6 oz pur e alcohol) social Sex and Gender Information Value Date Recorded Sex Assigned at Not on file Gender Identity Not on file Sexual Orientation Not on file Last Filed Vital Signs Vital Sign Reading Time Taken Comments Blood Pressure 98/64 02/03/2023 8:21 AM CDT Pulse 90 02/03/2023 8:21 AM CDT Temperature 36.8 C (98.2 F) 02/03/2023 8:21 AM CDT Respiratory Rate - - Oxygen Saturation - - Inhaled Oxygen Concentration - - Weight 108 kg (238 lb) 03/11/2023 3:04 PM CDT Height 177.8 cm (5' 10 ) 03/11/2023 3:04 PM CDT Body Mass Index 34.15 03/11/2023 3:04 PM CDT Plan of Treatment Not on file Care Teams Regulatory Affairs Associate Relationship Specialty Start Date End Date Fran Vazquez MD [address] [facility] [address] [address] [place] [address] PCP - General 11/20/22
--- OUTSIDE RECORDS SUMMARY | 2024-11-18 15:33 | XMS_ITS | Referral Summary ---
Author Organization [facility] Address [address] [place] [address] Care Team Providers Care Metalizing Machine Operator Name Role Phone Zia Horowitz MD Unavailable [phone] Mohsen LouisM Unavailable [phone] Juan Pablo Barros MD Unavailable Fran Vazquez MD Primary Care Provider [phone] Allergies No known active allergies Medications semaglutide (Ozempic) 1 mg/dose (2 mg/1.5 mL) pen injectorIndicat ions:weight loss Inject 1 mg under the skin every 7 days Active coenzyme Q10 100 mg capsule Take 100 mg by mouth daily Active cholecalciferol , vitamin D3, (VITAMIN D3 ORAL) Take by mouth Active albuterol HFA (PROVENTIL HFA,VENTOLIN HFA,PROAIR HFA) 90 mcg/actuation inhaler Inhale 2 puffs every 6 (six) hours as needed Active clomiPHENE (CLOMID) 50 mg tablet Take 0.5 tablets (25 mg total) by mouth every other day 20 tablet 3 02/27/2021 Active Active Problems Problem Noted Date Diagnosed Date Irritable bowel syndrome 02/19/2021 Plantar fasciitis, bilateral 02/19/2021 Right ankle sprain 02/19/2021 Asthma Immunizations Name Administration Dates Next Due Influenza, Unspecified 07/05/2020(Deferred: Adriana ent Refused) Social History Tobacco Use Types Packs/Day Years Used Date Smoking Tobacco: Every Day E-cigarettes Started: 2000 Vaping Started: 2001 Smokeless Tobacco: Never Tobacco Cessation:Ready to Q uit: Yes; Counseling Given: Yes Comments:quit smoking cigarettes in 2017 AUDIT-C Answer Date Recorded Q1: How often do you have a drink containing alc ohol? Monthly or less 02/19/2021 Average Number of Drinks Not on file 021 Q3: How often do you have si x or more drinks on one occasion? Never 02/19/2021 PHQ-2 Answer Date Recorded PHQ-2 Total Score (If total score is 3 or more points, staff should administer the PHQ-9) 0 02/19/2021 Exercise Vital Sign Answer Date Recorde d On average, how many days pe r week do you engage in moderate to strenuous exercise (like a brisk walk)? 1 day Minutes of Exercise per Session Not on file 02/19/2021 Personal Safety Answer Date Recorded Getting School Help Needed Not on file 06/11 Education Answer Date Recorded What is the highest level of school you have completed or the highest degree you have received? 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 Not on file Not on file Last Filed Vital Signs Vital Sign Reading Time Taken Comments Blood Pressure 122/82 05/28/2023 2:41 PM CDT Pulse 88 05/28/2023 6:03 PM CDT Temperature 37.1 C (98.7 F) 05/28/2023 2:41 PM CDT Respiratory Rate 15 05/28/2023 6:03 PM CDT Oxygen Saturation 98% 05/28/2023 6:03 PM CDT Inhaled Oxygen Concentration - - Weight 104.3 kg (230 lb) 05/28/2023 2:41 PM CDT Height 177.8 cm (5' 10 ) 05/28/2023 2:41 PM CDT Body Mass Index 33 05/28/2023 2:41 PM CDT Plan [place] [id number] [facility]LY [facility] SIG [id number] [employer]CIAL [employer] [facility] [place] [id number] Care Teams Metalizing Machine Operator Relationship Specialty Start Date End Date Fran Vazquez MD [address] [place] [address] PCP - General Emergency Medicine 11/27/22 [place] [id number] [address] Consulting Physician Cardiology 02/19/21 Mohsen Louis DPM [address] [address] Referring Physician 02/19/21 Juan Pablo Barros MD [address] [place] [address] Consulting Physician Urology 02/19/21
--- OUTSIDE RECORDS SUMMARY | 2024-11-18 15:33 | XMS_ITS | Patient Health Summary ---
Author Organization [facility] Address [address] [place] [address] Care Team Providers Care Janitor Head Name Role Phone Fran Vazquez MD Primary Care Provider [phone] Note from [facility],non-owned Affiliates and Associated Physician Practices is amultiple site organization consisting of ambulatory clinics and hospital sitesin [place], [place] and [place]. This disclosure is being madepursuant to the Care Everywhere program and may not contain all information available regarding this patient. Last updated 18.[facility] [employer] Allergies No known active allergies Medications * Be aware that medications may not be up to date on this document. Alwaysverify current medications with the patient. * albuterol HFA (Proventil; Ventolin; Proair) 108 (90 Base) MCG/ACT inhaler Inhale 2 (two) puffs by mouth every 6 hours as needed * vitamin D, ergocalciferol, (Drisdol) 1.25 MG (81348 UT) capsule(Started 11/27/2022) Take 1 (one) capsule by mouth once daily * pantoprazole EC (Protonix) 40 MG tablet(Started 12/24/2022) Take 1 (one) tablet by mouth once daily * fluticasone propionate (Flonase) 50 MCG/ACT nasal spray(Started 02/03/2023) Winn 2 (two) sprays into each nostril once daily 3 refills by 02/03/2024 Active Problems Problem Noted Date Diagnosed Date [...] Mass Index 34.15 03/11/2023 3:04 PM CDT Procedures * XR ANKLE LEFT 3VW OR MORE(Performed 02/06/2023) Performed for Left ankle pain, unspecified chronicity Results * XR ANKLE LEFT 3VW OR MORE (02/06/2023 2:41 PM CDT) Anatomical Region Laterality Modality Lower Extremity Radiographic Yolanda ging 02/06/2023 4:09 PM CDT Impressions 02/06/2023 4:13 PM CDT IMPRESSION: Ossific fragment at the fifth metatarsal base could represent an unfused apophysis or age-indeterminate fracture. > Interpreting Provider: Neville Brown MD on 02/06/2023 4:13 PM Narrative 02/06/2023 4:13 PM CDT PROCEDURE: XR ANKLE LEFT 3VW OR MORE DATE/TIME OF EXAM: 02/06/2023 2:41 PM CLINICAL INFORMATION: None relevant/not provided if blank. Indication: M25.572: Left ankle pain, unspecified chronicity Additional History: COMPARISON: None. FINDINGS: There is an ossific fragment at the fifth metatarsal base which could represent an unfused apophysis or age-indeterminate fracture. No other evidence of fracture or dislocation. The joint spaces are normal. Mild soft tissue swelling. Procedure Note Neville Brown MD - 02/06/2023 PROCEDURE: XR ANKLE LEFT 3VW OR MORE DATE/TIME OF EXAM: 02/06/2023 2:41 PM CLINICAL INFORMATION: None relevant/not provided if blank. Indication: M25.572: Left ankle pain, unspecified chronicity Additional History: COMPARISON: None. FINDINGS: There is an ossific fragment at the fifth metatarsal base which could represent an unfused apophysis or age-indeterminate fracture. No other evidence of fracture or dislocation. The joint spaces arenormal. Mild soft tissue swelling. IMPRESSION: Ossific fragment at the fifth metatarsal base couldrepresent an unfused apophysis or age-indeterminate fracture. > Interpreting Provider: Neville Brown MD on 02/06/2023 4:13 PM Ute Gross PA-C DIAGNOST[facility] Care Teams Janitor Head Relationship Specialty Start Date End Date Fran Vazquez MD [address] [place] [address] PCP - General 11/20/22
--- OUTSIDE RECORDS SUMMARY | 2024-11-18 15:33 | XMS_ITS | Clinical Summary ---
Author Organization [facility] [email or web address] Address [address] [facility] [place] [address] Care Team Providers Care Doubler Operator Name Role Phone Fran Vazquez MD Primary Care Provider [phone] Source Comments [facility] [email or web address],non-owned Affiliates and Associated Physician Practices is amultiple site organization consisting of ambulatory clinics and hospital sitesin [place], [place], [place] and [place]. This disclosure is being madepursuant to the Care Everywhere program and may not contain all information available regarding this patient. Last updated 18.[facility] [email or web address] Allergies No known active allergies Medications * Be aware that medications may not be up to date on this document. Alwaysverify current medications with the patient. Medication Sig Dispensed Refills Start Date End Date Status albuterol HFA (Proventil; Ventolin; Proair) 108 (90 Base) MCG/ACT inhaler Inhale 2 (two) puffs by mouth every 6 hours as needed Active vitamin D, ergocalciferol, (Drisdol) 1.25 MG (80413 UT) capsule Take 1 (one) capsule by mouth once daily 11/27/2022 Active pantoprazole EC (Protonix) 40 MG tablet Take 1 (one) tablet by mouth once daily 12/24/2022 Active fluticasone propionate (Flonase) 50 MCG/ACT nasal sprayIndications:Nasal obstruction,Rhinitis medicamentosa [place] 2 (two) sprays into each nostril once [...] 03/11/2023 3:04 PM CDT Plan of Treatment Health Maintenance Due Date Last Done Comments LIPID TESTING 1984 HIV SCREENING 1999 HEPATITIS C SCREENING 04/24/2002 DTAP/TDAP/TD VACCINES (1 - Tdap) 2003 HEPATITIS B VACCINE (1 of 3 - 19+ 3-dose series) 2003 PNEUMOCOCCAL VACCINE (1 of 2 - PCV) 2003 COVID-19 VACCINE ( - 2023-2 5 season) 2024 INFLUENZA VACCINE (#1) 2024 DEPRESSION SCREENING 10/05/2024 ZOSTER VACCINE (1 of 2) 2034 HIB VACCINE Aged Out No longer eligi ble based on patient's age to complete this topic HPV VACCINE Aged Out No longer eligi ble based on patient's age to complete this topic MENINGOCOCCAL (Group B) VACCINE Aged Out No longer eligible based on patient's age to complete this topic MENINGOCOCCAL VACCINE Aged Out No hernando everette eligible based on patient's age to complete this topic Care Teams Doubler Operator Relationship Specialty Start Date End Date Fran Vazquez MD [address] [place] [address] [address] [place] [address] PCP - General 11/20/22
--- OUTSIDE RECORDS SUMMARY | 2024-11-18 15:33 | XMS_ITS | Clinical Summary ---
Author Organization [facility] Address [address] [place] [address] Care Team Providers Care Environmental Sustainability Manager Name Role Phone Zia Horowitz MD Unavailable [phone] Mohsen Louis DPM Unavailable [phone] Juan Pablo Barros MD Unavailable [phone] Fran Vazquez MD Primary Care Provider [phone] Allergies No known active allergies Medications semaglutide [...] Due Influenza, Unspecified 07/05/2020(Deferred: Adriana ent Refused) Surgical History Surgery Date Site/Laterality Comments WRIST SURGERY 10/05/2002 - 10/04/2003 Right ORCHIOPEXY 10/05/1985 - 10/04/1986 Right INGUINAL HERNIA REPAIR 10/05/2003 - 10/04/2004 Left Medical History Medical History Date Comments Asthma Plantar fasciitis, bilateral 02/19/2021 Irritable bowel syndrome 02/19/2021 Family History Medical History Relation Name Comments Migraines Father No Known Problems Maternal Grandfather No Known Problems Maternal Grandmother Diabetes type II Mother Obesity Mother gluten allergy Sister Relation Name Status Comments Father Alive Maternal Grandfather Other adopted his mother Maternal Grandmother Other adopted his mother Mother Alive Paternal Grandfather Paternal Grandmother Sister Alive Social History Tobacco Use Types Packs/Day Years Used Date Smoking Tobacco: Every Day E-cigarettes Started: 2000 Vaping Started: 2000 Smokeless Tobacco: Never Tobacco Cessation:Ready to Q [...] on file Legal Sex Male 1:13 AM PROGRAMMING INTERN Gender Identity Not on file Sexual Orientation Not on file 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 Not on file Not on file Obstetrics History Last Filed Vital Signs Vital Sign Reading [...] 05/28/2023 2:41 PM CDT Plan of Treatment Health Maintenance Due Date Last Done Comments Hepatitis C Screening 1984 Pneumococcal vaccine <65 (1 of 2 - PCV) 1990 DTaP/Tdap/Td Vaccine (1 - Tdap) 1995 Varicella Vaccines (1 of 2 - 13+ 2-dose series) 1997 Hepatitis B Screening 2002 Depression Screening 02/19/2022 02/19/2021 Regular Well Visit/Exam 18-64 02/19/2022 02/19/2021 Influenza Vaccine (#1) 2024 HPV Vaccines Aged Out No longer eligi ble based on patient's age to complete this topic Insurance AET SIG [id number] Member Subscriber Plan / Payer (Ef fective 1899-Present) Name:Sheldon Rodríguez Relation to Subscriber:Self Name:Sheldon Rodríguez Payer ID:[id number] ([facility]) Type:AETNA HMO/PPO Address: [facility] [id number] [place] [phone] COMMERCIAL GENERIC IDVT [facility] Member Subscriber Plan / Payer (Ef fective 2018-Present) Name:Sheldon Rodríguez Relation to Subscriber:Self Name:Sheldon Rodríguez Payer ID:[id number] ([facility]) Type:AETNA HMO/PPO Address: [address] [place] [address] [place] [id number] Care Teams Environmental Sustainability Manager Relationship Specialty Start Date End Date Fran Vazquez MD [address] [place] [address] PCP - General Emergency Medicine 11/27/22 [place] [address] [address] Consulting Physician Cardiology 02/19/21 Mohsen Louis DPM [address] [address] Referring Physician 02/19/21 Juan Pablo Barros MD [address] [place] [address] Consulting Physician Urology 02/19/21
--- OUTSIDE RECORDS SUMMARY | 2024-11-18 15:33 | XMS_ITS | Clinical Summary ---
Author Organization [facility] Address [address] [place] [address] Phone Care Team Providers Care Broadcast Journalist Name Role Phone Wolf Chentejosue GUZMAN Primary Care Provider Allergies No known active allergies Medications Acetaminophen (TYLENOL PO) Take by mouth. Active clotrimazole (LOTRIMIN) 1 % Cream APPLY TO AFFECTED AREA ON LEFT FOOT TWICE DAILY FOR 7 DAYS 3 Active albuterol 108 (90 Base) MCG/ACT Aerosol SolutionIndicatio ns:Mild intermittent asthma without complication INHALE 1 TO 2 PUFFS BY MOUTH EVERY 4 HOURS NEEDED FOR WHEEZING OR COUGH 8.5 g 4 Active Active Problems Problem Noted Date Diagnosed Date Asthma, mild intermittent 07/08/2023 Asthma 02/05/2023 Irritable bowel syndrome 02/19/2021 B12 deficiency 01/11/2021 Hyperlipidemia 01/11/2021 Vitamin D deficiency 01/11/2021 Obesity 11/30/2020 Immunizations Immunization Administration Dates Next Due Covid-19, Mrna, Lnp-s, Pf, 30 Mcg/0.3 Ml Dose (Rojas perez) 06/27/2021,05/17/2021 Influenza,Split Virus,Trivalent,Injectable,PF Pneumococcal conjugate PCV20 , polysaccharide [id number] conjugate, adjuvant, PF 07/08/2024 Family History Medical History Relation Name Comments No Known Problems Father No Known Problems Mother Relation Name Status Comments Father Alive Mother Alive Social History Tobacco Use Types Packs/Day Years Used Date Smoking Tobacco: Every Day Cigarettes Passive Smoke Exposure: Never Smokeless Tobacco: Never Tobacco Cessation:Ready to Q uit: No; Counseling Given: No Alcohol Use Standard Drinks/Week Comments Yes 0 (1 standard drink = 0.6 oz pur e alcohol) socially AUDIT-C Answer Date Recorded Frequency of Alcohol Consumption Never 09/09/2019 Average Number of Drinks Not on file 019 Frequency of Binge Drinking Not on file 03/2019 PHQ-2 Answer Date Recorded Total Score - Questions 1-9 0 01/2024 Sexually Active Control Partners Comments Yes Sex and Gender Information Value Date Recorded Sex Assigned at Not on file Legal Sex Male 12:36 AM CDT Gender Identity Not on file Sexual Orientation Not on file Last Filed Vital Signs Vital Sign Reading Time Taken Comments Blood Pressure 102/78 07/08/2024 8:25 AM CDT Pulse 73 07/08/2024 8:25 AM CDT Temperature 36.2 C (97.2 F) 07/08/2024 8:25 AM CDT Respiratory Rate 20 07/08/2024 8:25 AM CDT Oxygen Saturation 98% 07/08/2024 8:25 AM CDT Inhaled Oxygen Concentration - - Weight 102.2 kg (225 lb 6.4 oz) 07/08/2024 8:25 AM CDT Height 177.8 cm (5' 10 ) 07/08/2024 8:25 AM CDT Body Mass Index 32.34 07/08/2024 8:25 AM CDT Plan of Treatment Upcoming Encounters Date Type Department Care Team (Late st Contact Info) Description 07/12/2025 9:15 AM CDT Office Visit [facility] - Primary Care - [place] [address] [place] [address] Chente Bloom PAC [address] [place] [address] Health Maintenance Due Date Last Done Comments Hepatitis C Virus (HCV) Screening 1984 TdaP Immunization 1984 Hepatitis B Immunization (1 of 3 - 19+ 3-dose series) 2003 SARS-COV-2 Immunization ( season) 2024 06/27/2021, 05/17/2021 Respiratory Syncytial Virus (RSV) Immunization (Adult) (1 - 1-dose 75+ series) 2059 Influenza Immunization Completed 07/08/2024 Pneumococcal Immunization Combined Completed 07/08/2024 Meningococcal Immunization (ACWY) Aged Out No longer eligible b ased on patient's age to complete this topic Rotavirus Immunization Aged Out No lo nger eligible based on patient's age to complete this topic Insurance MEDICAID [facility] Care Teams Broadcast Journalist Relationship Specialty Start Date End Date Chente Bloom PAC [address] [place] [address] PCP - General Physician Heading Matcher And Assembler 07/08/23
[2024-11-18 15:40] VITALS: BP 139/89; PULSE 89; RESP 16; TEMP 36.3; O2SAT 100
--- NOTE | 2024-11-18 15:47 | ED_ITS ---
HPI - General Adult General Chief complaint: Unspecified Stated complaint: has covid/needs work note Time Seen by Provider: 11/18/24 15:47 Source: patient and RN notes reviewed Mode of arrival: ambulatory Limitations: no limitations History of Present Illness HPI narrative: 39 y/o male presented for c/o headache, nasal congestion body aches, and fever. He states he tested positive for COVID 3 days ago. Symptom onset was about 5 days prior to testing positive. Pt states today he needs a note for his employer to show he was seen before returning to work. His employer is giving him the return to work guidelines. Taking Tylenol. Denies sob,wheezing, n/v/d. Related Data Home Medications ?Medication ?Instructions ?Recorded ?Confirmed ?Last Taken ?Type albuterol sulfate 90 mcg/actuation 1 puff inhalation Q4-6H 11/23/23 08/05/24 Unknown History aerosol inhaler hydrocodone 5 mg-acetaminophen 325 tablet 10/24/24 Unknown History mg tablet Allergies Allergy/AdvReac Type Severity Reaction Status Date / Time No Known Allergies Allergy Verified 11/18/24 15:44 Review of Systems Review of Systems: per HPI [facility] Past Medical History Medical History Asthma GERD (gastroesophageal reflux disease) History of sinus problem Tachycardia Undescended testicle, unilateral Surgical History Surgical History H/O right wrist surgery ORIF fracture S/P left inguinal herniorrhaphy Family History Family History Mother Diabetes mellitus Social History Social History Smoking status: Current every day smoker Tobacco type: e-cigarettes/vaping Alcohol intake: current Alcohol use details: Rarely uses Substance use type: does not use Living arrangements: with family Gender identity (if verbalized by the patient): Male Exam Narrative: GENERAL: mildly Ill-appearing, nontoxic EYES: conjunctivae clear ENT: Mucous membranes moist. TM pearly perales with dull light reflex bilaterally; no tragal tenderness. no drooling, no hoarseness, no trismus, uvula midline. No tripod positioning, muffled voice, soft palate or pharyngeal wall bulging CHEST: Clear to auscultation, breath sounds equal. No wheezing, rhonchi, rales, or stridor. No respiratory distress, speaks in full sentences. HEART: Regular rate and rhythm. SKIN: Warm, dry, no rash. NEURO: Alert and oriented x3. PSYCH: Normal mood and affect Course Course Emergency Course: Patient is aware of diagnosis, understands and agrees to treatment plan. Anticipatory guidance given. Patient agrees to follow-up as directed and is aware of reasons to seek care at the emergency department. Portions of this record may have been created with voice recognition software Level of Care: Express Care Visit Vital Signs Vital signs: Vital Signs Temperature 97.4 F L 11/18/24 15:40 Pulse Rate 89 11/18/24 15:40 Respiratory Rate 16 11/18/24 15:40 Blood Pressure 139/89 11/18/24 15:40 Pulse Oximetry 100 11/18/24 15:40 Oxygen Delivery Room Air 11/18/24 15:40 Temperature 97.4 F L 11/18/24 15:40 Pulse Rate 89 11/18/24 15:40 Respiratory Rate 16 11/18/24 15:40 Blood Pressure 139/89 11/18/24 15:40 Pulse Oximetry 100 11/18/24 15:40 Oxygen Delivery Room Air 11/18/24 15:40 reviewed Medical Decision Making MDM Narrative Medical decision making narrative: Discussed physical exam findings.Pt says he only needs a note that says he was seen here, his employer is providing return to work restrictions/guidelines. Advised supportive measures and signs/symptoms to go to the ER. Pt is appropriate for outpt treatment and f/u. Differential Diagnosis Differential Diagnosis: Influenza, covid, sinusitis, OM, strep pharyngitis, URI Vital Signs Vital Signs: Vital Signs Temperature 97.4 F L 11/18/24 15:40 Pulse Rate 89 11/18/24 15:40 Respiratory Rate 16 11/18/24 15:40 Blood Pressure 139/89 11/18/24 15:40 Pulse Oximetry 100 11/18/24 15:40 Oxygen Delivery Room Air 11/18/24 15:40 Temperature 97.4 F L 11/18/24 15:40 Pulse Rate 89 11/18/24 15:40 Respiratory Rate 16 11/18/24 15:40 Blood Pressure 139/89 11/18/24 15:40 Pulse Oximetry 100 11/18/24 15:40 Oxygen Delivery Room Air 11/18/24 15:40 Discharge Plan Discharge Clinical Impression: Viral infection Patient Disposition: Home, Self-Care Condition: Stable Instructions: COVID-19 (Coronavirus Disease 2019) (ED) Additional Instructions: The following updated recommendations have been made by the CDC and local Health Departments, regarding COVID-19: - When people get sick with a respiratory virus, they stay home and away from others. - Return to normal activities when, for at least 24 hours, symptoms are improving overall, and if a fever was present, it has been gone without use of a fever-reducing medication. - Once people resume normal activities, they are encouraged to take additional prevention strategies for the next 5 days to curb disease spread, such as taking more steps for millstone cleaner air, enhancing hygiene practices, wearing a well-fitting mask, keeping a distance from others, and/or getting tested for respiratory viruses. - Enhanced precautions are especially important to protect those most at risk for severe illness, including those over 65 and people with weakened immune systems. Rest, stay hydrated. Tylenol and ibuprofen every 8 hours as needed Flonase/nasal spray, Zyrtec, cough syrup cold/flu medications for symptoms as needed Follow up with your primary care provider, call to schedule an appointment. Go to the ER for worsening symptoms or concerns. Patient Language: Faroese Prescriptions: No Action albuterol sulfate 90 mcg/actuation HFA aerosol inhaler 1 puff INHALATION Q4-6H hydrocodone-acetaminophen 5-325 mg tablet Follow-up/Referrals: PHYSICIAN NOT ON STAFF,NONSTAFF [Primary Care Provider] - Stand Alone Forms: Work/School Release IP Time of Disposition: 15:52
== END 2024-11-18 15:59 | disposition home or self-care (01) ==
PROVIDERS: Emergency Provider Nurse Practitioner Family
DX: B34.9 Viral infection, unspecified (principal); F17.290 Nicotine dependence, other tobacco product, uncomplicated
CPT/HCPCS: 99211; G0463

== ENCOUNTER 2025-02-10 18:31 | Emergency (ER) | payer OTHER, SELFPAY ==
[2025-02-10 18:34] VITALS: BP 140/81; PULSE 86; RESP 16; TEMP 36.7; O2SAT 98
--- OUTSIDE RECORDS SUMMARY | 2025-02-10 18:34 | XMS_ITS | Clinical Summary ---
Author Organization [facility] Address [address] [place] [address] Phone Care Team Providers Care Patent Legal Assistant Name Role Phone Wolf Chetnejosue GUZMAN Primary Care Provider Allergies No known [...] Influenza,Split Virus,Trivalent,Injectable,PF Pneumococcal conjugate PCV20 , polysaccharide [id number] conjugate, adjuvant, PF 07/08/2024 Family History Medical [...] Primary Care - Ray[place]undo [address] [place] [address] Chente Bloom PAC [address] [place] [address] Health Maintenance Due Date Last Done [...] [facility] Care Teams Patent Legal Assistant Relationship Specialty Start Date End Date Chente Bloom PAC [address] [place] [address] PCP - General Physician Belt Builder 07/08/23
--- OUTSIDE RECORDS SUMMARY | 2025-02-10 18:34 | XMS_ITS | Clinical Summary ---
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 Gender Identity Not on file Sexual Orientation Not on file 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 Not on file [...] Last Done Comments Hepatitis C Screening 1984 DTaP/Tdap/Td Vaccine (1 - Tdap) 1995 Varicella Vaccines (1 of 2 - 13+ 2-dose series) 1997 Hepatitis B Screening 2002 Pneumococcal vaccine <65 (1 of 2 - PCV) 2003 Depression Screening 02/19/2022 02/19/2021 Regular Well Visit/Exam 18-64 02/19/2022 02/19/2021 Influenza Vaccine (#1) 2024 HPV Vaccines Aged Out No longer eligi ble based on patient's age to complete this topic Insurance [facility] SIG [id number] COMMERCIAL GENERIC IDUT [facility] [place] [id number] Care Teams Bow Maker Relationship Specialty Start Date End Date Fran Vazquez MD [address] [place] [address] PCP - General Emergency Medicine 11/27/22 [place] [address] [address] Consulting Physician Cardiology 02/19/21 Mohsen Louis DPM [address] [address] Referring Physician 02/19/21 Juan Pablo Barros MD [address] [place] [address] Consulting Physician Urology 02/19/21
--- OUTSIDE RECORDS SUMMARY | 2025-02-10 18:34 | XMS_ITS | Referral Summary ---
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 Not on file [...] [place] [id number] [facility] SIG [id number] COMMERCIAL GENERIC Diversity [employer] [facility] [place] [id number] Care Teams Associate Professor Of Physics Relationship Specialty Start Date End Date Fran Vazquez MD [address] [place] [address] PCP - General Emergency Medicine 11/27/22 [place] [address] [address] Consulting Physician Cardiology 02/19/21 Mohsen Louis DPM [address] [address] Referring Physician 02/19/21 Juan Pablo Barros MD [address] [place] [address] Consulting Physician Urology 02/19/21
--- OUTSIDE RECORDS SUMMARY | 2025-02-10 18:34 | XMS_ITS | Clinical Summary ---
Author Organization [facility] Address [address] [facility] [place] [address] Care Team Providers Care Director Oracle Name Role Phone Fran Vazquez MD Primary Care Provider [phone] Source Comments [facility],non-owned Affiliates and Associated Physician Practices is amultiple site organization consisting of ambulatory clinics and hospital sitesin [place], [place], [place] and [place]. This disclosure is being madepursuant to the Care Everywhere program and may not contain all information available regarding this patient. Last updated 18.[employer] [facility] Allergies No known active allergies Medications * Be aware that medications may not be up to date on this document. Alwaysverify current medications with the patient. 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 Gender Identity Not on file Sexual Orientation [...] of 2 - PCV) 2003 COVID-19 VACCINE (1 - 2023-2 5 season) 2024 DEPRESSION SCREENING 10/05/2024 INFLUENZA VACCINE (Season Ended) 2025 ZOSTER VACCINE (1 of 2) 2034 HIB VACCINE Aged Out No longer eligi ble based on patient's age to complete this topic HPV VACCINE Aged Out No longer eligi ble based on patient's age to complete this topic MENINGOCOCCAL (Group B) VACC INE SHARED DECISION-MAKING Aged Out No longer eligibl e based on patient's age to complete this topic MENINGOCOCCAL GROUPS A/C/Y/W VACCINE Aged Out No longer eligible b ased on patient's age to complete this topic Insurance AETNA MEDICAID [place] T Care Teams Director Oracle Relationship Specialty Start Date End Date Fran Vazquez MD [address] [facility] [address] [place] [address] PCP - General 11/20/22
--- OUTSIDE RECORDS SUMMARY | 2025-02-10 18:34 | XMS_ITS | CONTINUITY OF CARE DOCUMENT ---
Author Name kari pierce Address Unknown Organization [facility] Address [address] [place] [address] [address] [place] [address] Phone [phone] Care Team Providers Care Educational Advisor Name Role Phone Zia Horowitz MD Unavailable [phone] Zia Horowitz MD Unavailable PROBLEMS Condition Status Date Provider Notes Exposure to SARS-associated coronavirus;neg igg active Zia Horowitz MD IRBBB active Zia Horowitz MD Tobacco use, quit active Zia Horowitz MD Screening active Zia Horowitz MD neg nuc Obesity active Zia Horowitz MD Palpitations active Zia Horowitz MD ? Sleep apnea active Zia Horowitz MD B12 deficiency active Saba Clemente NP Vitamin D deficiency active Saba lei GLASS SANDER BELT Hyperlipidemia;IWTH HIGHR CRP active Saba Clemente GLASS SANDER BELT ENCOUNTERS Date Type Provider Location Encounter Diag nosis - In-person encounter Office Visit Zia Horowitz MD [facility] B12 deficiencyVitami n D deficiencyHyperlipidemia ;IWTH HIGHR CRP - In-person encounter Office Visit Zia Horowitz MD [facility] IRBBBTobacco use, quitScreeningObesityPalp itations? Sleep apnea VITAL SIGNS Date Observation Value Provider Body Mass Index (Ratio) 34.15 kg/m2 Flora Horowitz MD pulse rate 80 /min Kimmiekassidy Zendejas blood pressure, diastolic 75 mm[Hg] Rh onnelly Cristiana blood pressure, systolic 145 mm[Hg] Rho ndkassidy Cristiana oxygen saturation, oximetry 99 % Kimmie Cristiana respiratory rate E&M 18 /min Kimmie Cristiana weight E&M 238 [lb_av] Kimmie Cristiana blood pressure, resting No Royaln nelly Cristiana blood pressure, cuff size regular Rh anais Cristiana height E&M 70 [in_i] Kimmie Cristiana Body Mass Index (Ratio) 34.43 kg/m2 Flora Horowitz MD blood pressure, cuff size regular Romain corral [place] blood pressure, diastolic 80 mm[Hg] Romain pam [place] blood pressure, systolic 130 mm[Hg] Susanne [facility] oxygen saturation, oximetry 99 % [facility] respiratory rate E&M 18 /min [facility] pulse rate 76 /min [facility] blood pressure, resting No Jarod orozco [place] weight E&M 240 [lb_av] [facility] height E&M 70 [in_i] [facility] HISTORY OF MEDICATION USE Medication Status Instructions Dates Provider Indications Com ments Ozempic 0.25 mg or 0.5 mg(2 mg/1.5 mL) pen injector active INJECT 0.5 MG UNDER THE SKIN WEEKLY. REDUCES RISK OF MAJOR CV EVENTS Shahnaz Esposito Crestor 10 mg tablet active 1 tablet once a day Saba Clemente NP cholecalciferol (vitamin D3) 125 mcg (5,000 unit) capsule active 1 tablet by mouth once a day Saba Clemente NP Vitamin B-12 1,000 mcg tablet active 1 tablet once a day Saba Clemente NP Ozempic 0.25 mg or 0.5 mg(2 mg/1.5 mL) pen injector completed INJECT 0.5 MG UNDER THE SKIN WEEKLY - Fang Velez TYLENOL CAPSULE active Take 1 tablet by mouth as needed [facility] SOCIAL HISTORY Date Observation Value Provider number of grandchildren Zia Clemente NP social history reviewed E&M revi ewed - no changes required Saba Clemente NP smoking status Unknown if ever smoked Royal Zendejas social history reviewed E&M jack ewed - no changes required Zia Horowitz MD INSURANCE PROVIDERS Payer name Policy type / Coverage type [facility] ID [employer] DEAL [id number] TREATMENT PLAN Date Name Performer Cardiology:supplemented Saba velezenal DON Cardiology:supplemented Saba Hernandez itchenal DON Cardiology: H is updated medication list for this problem includes: Crestor 10 Mg Oral Tablet (Rosuvastatin calcium) ..... One tab. daily Encouraged Calcium Score Testing Saba Clemente NP Cardiology: Ozempic going well Saba Clemente NP Cardiology: n eg dd and neg brain ct and neg echo Saba Clemente NP Cardiology:STOP BANG score of 4, needs IHS test to evaluate for VIKI Saba Clemente NP Cardiology: 3 0 day telesentry monitor returned today, awaiting results F eels they have gotten better over the past week or so Saba Clemente NP :neg dd and neg brain ct and neg echo Zia Horowitz MD Cardiology Zia Horowitz MD Cardiology Zia Horowitz MD Cardiology Zia Horowitz MD Cardiology Zia Horwoitz MD Cardiology:neg dd, neg ct brain Zia Horowitz MD Date Name CT, Coronary Calcium Score Sleep Study Home Stress Regadenoson CT, Coronary Calcium Score HEMOGLOBIN A1c Stress Routine Sleep Study Home COVID19 High Affinit y Antibodies (LC) VITAMIN B12 Vitamin D, 25-Hydrox y TSH, free T4, total T3 C-REACTIVE PROTEIN LIPID PANEL Complete Echo Monitor - Telemetry (Mobile Cardiac) HISTORY OF PROCEDURES Procedure Date Procedure Name Provider Procedure Notes S tatus Event Monitor Zia Horowitz MD compl eted EKG Zia Horowitz MD complete d
--- OUTSIDE RECORDS SUMMARY | 2025-02-10 18:34 | XMS_ITS | CONTINUITY OF CARE DOCUMENT ---
Author Name kari pierce Address Unknown Organization [facility] Address [address] [place] [address] [address] [place] [address] Phone [phone] Care Team Providers Care Meterman Name Role Phone Zia Horowitz MD Unavailable Zia Horowitz MD Unavailable PROBLEMS Condition Status [...] NP Vitamin D deficiency active Saba lei VACCINATOR Hyperlipidemia;IWTH HIGHR CRP active Saba Clemente VACCINATOR ENCOUNTERS Date Type Provider Location Encounter Diag nosis - In-person encounter Office Visit Zia Horowitz MD [facility] B12 deficiencyVitami n D deficiencyHyperlipidemia ;IWTH HIGHR CRP - In-person encounter Office Visit Zia Horowitz MD [facility] IRBBBTobacco use, quitScreeningObesityPalp itations? Sleep apnea [...] blood pressure, cuff size regular Romain corral [place] blood pressure, diastolic 80 mm[Hg] Romain pam [place] blood pressure, systolic 130 mm[Hg] Susanne [facility] oxygen saturation, oximetry 99 % [facility] respiratory rate E&M 18 /min [facility] pulse rate 76 /min [facility] blood pressure, resting No Jarod orozco [place] weight E&M 240 [lb_av] [facility] height E&M 70 [in_i] [facility] HISTORY OF MEDICATION USE Medication Status Instructions [...] Payer name Policy type / Coverage type [facility] ID [employer] DEAL [id number] TREATMENT PLAN Date Name Performer Cardiology:supplemented Saba [...] Zia Horowitz MD Cardiology Zia Horowitz MD Cardiology:neg dd, neg ct brain Zia [...]
--- NOTE | 2025-02-10 18:43 | ED.NAVMDI ---
HPI - Nausea/Vomiting/Diarrhea General Chief complaint: Nausea/Vomiting/Diarrhea Stated complaint: flu symptoms Time Seen by Provider: 02/10/25 18:43 Source: patient and RN notes reviewed Mode of arrival: ambulatory Limitations: no limitations History of Present Illness HPI Narrative: 39-year-old male presents with concern of for nausea, vomiting, diarrhea for 2 days. Reports his last episodes of vomiting or diarrhea were overnight. Not episodes today. Reports he is eating and drinking keeping food and fluids down today. He reports he had sweats 2 days ago but denies fever. He denies abdominal pain. MD elicited complaint: nausea, vomiting and diarrhea Related Data Home Medications ?Medication ?Instructions ?Recorded ?Confirmed ?Last Taken ?Type pantoprazole 02/10/25 Unknown History Allergies Allergy/AdvReac Type Severity Reaction Status Date / Time No Known Allergies Allergy Verified 02/10/25 18:38 Review of Systems Review of Systems: CONSTITUTIONAL: Denies malaise, chills, sweats, or fever. ENT: Denies rhinorrhea, congestion, sinus pain, otalgia or sore throat. CARDIOVASCULAR: Denies chest pain, palpitations, or edema. RESPIRATORY: Denies cough or dyspnea. GASTROINTESTINAL: Denies abdominal pain, current nausea, vomiting, diarrhea, bloody, or mucous stools. GENITOURINARY: Denies dysuria or hematuria. MUSCULOSKELETAL: Denies myalgia. NEUROLOGIC: Denies headache. All systems reviewed & are unremarkable except as noted in HPI and below PMFSH Past Medical History Medical History Asthma GERD (gastroesophageal reflux disease) History of sinus problem Tachycardia Undescended testicle, unilateral Surgical History Surgical History H/O right wrist surgery ORIF fracture S/P left inguinal herniorrhaphy Family History Family History Mother Diabetes mellitus Social History Social History Smoking status: Current every day smoker Tobacco type: e-cigarettes/vaping Alcohol intake: current Alcohol use details: Rarely uses Substance use type: does not use Living arrangements: with family Gender identity (if verbalized by the patient): Male Comments At time of signature, agree with nursing past medical, surgical, social and family history. There is no relevant family history pertinent to the presenting complaint Exam Narrative: GENERAL: Well-appearing, well-nourished, and in no acute distress. HEAD: Normocephalic, atraumatic. EYES: PERRLA, conjunctivae clear, and EOMI. ENT: Nares clear. Mucous membranes moist. NECK: Supple. No lymphadenopathy CHEST: Speaks in full sentences. No respiratory distress. HEART: Regular rate and rhythm. SKIN: Warm, dry, no rash. NEURO: Alert and oriented x3. PSYCH: Normal mood and affect Course Course Emergency Course: Patient is aware of diagnosis, understands and agrees to treatment plan. Anticipatory guidance given. Patient agrees to follow-up as directed and is aware of reasons to seek care at the emergency department. Portions of this record may have been created with voice recognition software Level of Care: Express Care Visit Vital Signs Vital signs: Vital Signs Temperature 98.1 F 02/10/25 18:34 Pulse Rate 86 02/10/25 18:34 Respiratory Rate 16 02/10/25 18:34 Blood Pressure 140/81 02/10/25 18:34 Pulse Oximetry 98 02/10/25 18:34 Oxygen Delivery Room Air 02/10/25 18:34 Temperature 98.1 F 02/10/25 18:34 Pulse Rate 86 02/10/25 18:34 Respiratory Rate 16 02/10/25 18:34 Blood Pressure 140/81 02/10/25 18:34 Pulse Oximetry 98 02/10/25 18:34 Oxygen Delivery Room Air 02/10/25 18:34 Reviewed. MDM - Nausea/Vomiting/Diarrhea MDM Narrative Medical decision making narrative: No evidence of pancreatitis, AAA, cholecystitis, choledocholithiasis, cholangitis, mesenteric ischemia, small bowel obstruction, diverticulitis, colitis, appendicitis, or pelvic etiology such as ovarian/testicular torsion, TOA, or ectopic . Patient has no history of peptic ulcer, H. pylori, chronic aspirin NSAID or corticosteroid use, chronic alcohol use, no history of inflammatory bowel disease, no history of active abdominal infection or malignancy. Patient has no history of hernia or intra-abdominal surgeries, patient denies absence of flatus, constipation, melena, hematemesis. Patient denies post-prandial pain. No pain-out of proportion. Exam findings show no acute concerns or changes; patient is non-toxic appearing and is in no distress. Patient is appropriate for outpatient treatment and follow-up. Critical Care Time Critical Care Time Critical Care Time: No Discharge Plan Discharge Clinical Impression: Nausea vomiting and diarrhea Patient Disposition: Home Condition: Stable Instructions: Acute Nausea and Vomiting (ED) Additional Instructions: Stay hydrated. Take small sips of fluid containing electrolytes frequently. You should go to the hospital if you experience return of persistent nausea and vomiting that does not resolve and does not allow you to tolerate any food or fluids, persistent fevers for greater than 2-3 more days, increasing abdominal pain that persists despite medications, persistent diarrhea, dizziness, syncope (fainting), or for any other concerns. Patient Language: Korean Prescriptions: No Action pantoprazole Follow-up/Referrals: UNKNOWN,DOCTOR [Primary Care Provider] - Stand Alone Forms: Work/School Release IP Time of Disposition: 18:50
== END 2025-02-10 18:57 | disposition home or self-care (01) ==
PROVIDERS: Emergency Provider Nurse Practitioner
DX: R11.2 Nausea with vomiting, unspecified (principal); R19.7 Diarrhea, unspecified; F17.290 Nicotine dependence, other tobacco product, uncomplicated; J45.909 Unspecified asthma, uncomplicated; K21.9 Gastro-esophageal reflux disease without esophagitis
CPT/HCPCS: 99211; G0463

== ENCOUNTER 2025-09-19 17:15 | Emergency (ER) | payer OTHER, SELFPAY ==
[2025-09-19 17:35] VITALS: BP 113/77; PULSE 84; RESP 18; TEMP 36.8; O2SAT 98
--- OUTSIDE RECORDS SUMMARY | 2025-09-19 18:18 | XMS_ITS | Clinical Summary ---
Author Organization [facility] Address [address] [place] [address] Care Team Providers Care Drug Safety Physician Name Role Phone Fran Vazquez MD Primary Care Provider [phone] Source Comments [facility],non-owned Affiliates and Associated Physician Practices is amultiple site organization consisting of ambulatory clinics and hospital sitesin [place], [place], [place] and [place]. This disclosure is being madepursuant to the Care Everywhere program and may not contain all information available regarding this patient. Last updated 18.[employer] [facility] Allergies No known active allergies Medications * Be aware that medications may not be up to date on this document. Alwaysverify current medications with the patient. 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 Gender Identity Not on file Sexual Orientation [...] 3:04 PM CDT Height 177.8 cm (5' 10) 03/11/2023 3:04 PM CDT Body Mass Index 34.15 03/11/2023 3:04 PM CDT Plan of Treatment Health Maintenance Due Date Last Done Comments LIPID TESTING 1984 HIV SCREENING 1999 HEPATITIS C SCREENING 04/24/2002 DTAP/TDAP/TD VACCINES (1 - Tdap) 2003 HEPATITIS B VACCINE (1 of 3 - 19+ 3-dose series) 2003 PNEUMOCOCCAL VACCINE (1 of 2 - PCV) 2003 HPV VACCINE (1 - 3-dose SCDM series) 2011 DEPRESSION SCREENING 10/05/2024 COVID-19 VACCINE (1 - 2024-2 6 season) 2025 INFLUENZA VACCINE (#1) 2025 ZOSTER VACCINE (1 of 2) 2034 [...] AETNA MEDICAID - [place] T Care Teams Drug Safety Physician Relationship Specialty Start Date End Date Fran Vazquez MD [address] [place] [address] PCP - General 11/20/22
--- OUTSIDE RECORDS SUMMARY | 2025-09-19 18:18 | XMS_ITS | Clinical Summary ---
Author Organization [facility] Address [address] [place] [address] Phone Care Team Providers Care Interstate Planner Name Role Phone Chente Bloom PAC Primary Care Provider [phone] Allergies No known active allergies Medications Acetaminophen (TYLENOL PO) Take by mouth. Ac tive clotrimazole (LOTRIMIN) 1 % Cream 023 Active pantoprazole (PROTONIX) 40 MG Tablet Delayed ResponseIndicatio ns:Gastroesophage al reflux disease without esophagitis Take 1 Tablet by mouth daily. 90 Tablet 3 025 Active semaglutide-weigh t management (Wegovy) 0.25 MG/0.5ML Solution Auto-injectorIndi cations:Body Mass Index Greater Than or Equal to 25 kg/m2,Obesity 0.25 mg by Subcutaneous route once a week. Indications: Obesity, Overweight 2 mL 025 Active atorvastatin (LIPITOR) 20 MG TabletIndications :Hyperlipidemia, unspecified hyperlipidemia type Take 1 Tablet by mouth daily. 90 Tablet 3 025 Active albuterol 108 (90 Base) MCG/ACT Aerosol SolutionIndicatio ns:Mild intermittent asthma without complication INHALE 1 TO 2 PUFFS BY MOUTH EVERY 4 HOURS NEEDED FOR WHEEZING OR COUGH 8.5 g 2 025 Active albuterol 108 (90 Base) MCG/ACT Aerosol SolutionIndicatio ns:Mild intermittent asthma without complication take 1-2 Puffs by inhalation every 4 hours as needed for Wheezing or Cough. 8.5 g 2 025 2024 Discontinued Active Problems Problem Noted Date Diagnosed Date Asthma, mild intermittent 07/08/2023 Asthma 02/05/2023 Irritable bowel syndrome 02/19/2021 B12 deficiency 01/11/2021 Hyperlipidemia 01/11/2021 Vitamin D deficiency 01/11/2021 Obesity 11/30/2020 Encounters Date Type Department Care Team Description 09/06/2025 Refill [facility] [place] [address] [place] [phone] Argelia Ramos, THOMAS Medication Refill 07/18/2025 1:30 PM CDT Physical Therapy [facility] [address] [place] [phone] Argelia Ramos, Merry Cheema, PT Abnormal posture (Primary Dx); Weakness; Back pain, unspecified back location, unspecified back pain laterality, unspecified chronicity Discharge Disposition: Discharged to home or Selfcare 07/18/2025 Travel 07/18/2025 Telephone [facility] [address] [place] [phone] Chente Bloom, THOMAS Prior Authorization (semaglutide-weight management (Wegovy) 0.25 MG/0.5ML Solution Auto-injector) 07/14/2025 3:15 PM CDT Physical Therapy [facility] [address] [place] [address] Argelia Ramos, Cristiana Matthew, PT Back pain, unspecified back location, unspecified back pain laterality, unspecified chronicity (Primary Dx) Discharge Disposition: Discharged to home or Selfcare 07/14/2025 Telephone [facility] [place] [address] [place] [phone] Chente Bloom, THOMAS Results 07/14/2025 Telephone [facility] [address] [place] [phone] Chente Bloom, PAC Prior Authorization (tirzepatide-weight management (Zepbound) 2.5 MG/0.5ML Solution Auto-injector) 07/12/2025 10:30 AM CDT Lab [address] [place] [phone] Routine general medical examination at a health care facility (Primary Dx); Hyperlipidemia, unspecified hyperlipidemia type Discharge Disposition: Discharged to home or Selfcare 07/12/2025 9:15 AM CDT Office Visit [address] [phone] Chente Bloom, THOMAS Preventative health care (Adult) (Primary Dx); Gastroesophageal reflux disease without esophagitis; Class 1 obesity due to excess calories with serious comorbidity and body mass index (BMI) of 33.0 to 33.9 in adult; Mild intermittent asthma without complication Discharge Disposition: Discharged to home or Selfcare 07/12/2025 [facility]phone [facility] [address] [place] [phone] Cristiana Andujar, PT Appointment 07/12/2025 Travel 07/06/2025 10:45 AM CDT Physical [facility] [address] [place] [address] Argelia Ramos, Merry Cheema, PT Discharge Disposition: Discharged to home or Selfcare 07/06/2025 Travel 07/04/2025 Telephone [facility] [address] [place] [phone] Merry Winslow, PT cancelled due to work 06/29/2025 4:15 PM CDT Physical Therapy [facility] [address] [place] [address] Argelia Ramos, Cristiana Matthew, PT Back pain, unspecified back location, unspecified back pain laterality, unspecified chronicity (Primary Dx) Discharge Disposition: Discharged to home or Selfcare 06/27/2025 Plan of Care Documentation [facility] [address] [place] [address] 06/26/2025 3:45 PM CDT Physical Therapy [facility] [address] [place] [address] Argelia Ramos, Merry Cheema C, PT Abnormal posture (Primary Dx); Back pain, unspecified back location, unspecified back pain laterality, unspecified chronicity; Weakness Discharge Disposition: Discharged to home or Selfcare 06/26/2025 Travel from Last 3 Months Immunizations Immunization Administration Dates Next Due Covid-19, Mrna, Lnp-s, Pf, 30 Mcg/0.3 Ml Dose (P fizer) 06/27/2021,05/17/2021 Influenza,Split Virus,Trivalent,Injectable,PF Pneumococcal conjugate PCV20 , polysaccharide [id number] conjugate, adjuvant, PF 07/08/2024 Family History Medical History Relation Name Comments No Known Problems Father No Known Problems Mother Relation Name Status Comments Father Alive Mother Alive Social History Tobacco Use Types Packs/Day Years Used Date Smoking Tobacco: Every Day Cigarettes 0.5 20.2 Started: 07/12/2005 Passive Smoke Exposure: Never Smokeless Tobacco: Never Tobacco Cessation:Ready to Q uit: No; Counseling Given: Yes Alcohol Use Standard Drinks/Week Comments Yes 0 (1 standard drink = 0.6 oz pur e alcohol) socially AUDIT-C Answer Date Recorded Frequency of Alcohol Consumption Never 09/09/2019 Average Number of Drinks Not on file 019 Frequency of Binge Drinking Not on file 03/2019 PHQ-2 Answer Date Recorded Total Score - Questions 1-9 0 05/2025 Sexually Active Control Partners Comments Yes Sex and Gender Information Value Date Recorded Sex Assigned at Not on file Legal Sex Male 12:36 AM CDT Gender Identity Not on file Sexual Orientation Not on file Last Filed Vital Signs Vital Sign Reading Time Taken Comments Blood Pressure 108/80 07/12/2025 9:23 AM CDT Pulse 88 07/12/2025 9:23 AM CDT Temperature 37.4 C (99.3 F) 07/12/2025 9:23 AM CDT Respiratory Rate 16 07/12/2025 9:23 AM CDT Oxygen Saturation 97% 07/12/2025 9:23 AM CDT Inhaled Oxygen Concentration - - Weight 107 kg (236 lb) 07/12/2025 9:23 AM CDT Height 177.8 cm (5' 10) 07/12/2025 9:23 AM CDT Body Mass Index 33.86 07/12/2025 9:23 AM CDT Plan of Treatment Upcoming Encounters Date Type Department Care Team (Late st Contact Info) Description 07/12/2026 9:00 AM CDT Lab [facility] [place] [address] [place] [address] 07/19/2026 9:00 AM CDT Office Visit [facility] [place] [address] [place] [phone] Chente Bloom PAC [address] [place] [address] Health Maintenance Due Date Last Done Comments TdaP Immunization 1984 Varicella Immunization (1 of 2 - 13+ 2-dose series) 1997 Hepatitis B Immunization (1 of 3 - 19+ 3-dose series) 2003 Influenza Immunization (#1) 2025 07/08/2024 SARS-COV-2 Immunization (3 - 2024- season) 2025 06/27/2021, 05/17/2021 Respiratory Syncytial Virus (RSV) Immunization (Adult) (1 - 1-dose 75+ series) 2059 Pneumococcal Immunization Combined Completed 07/08/2024 Hepatitis C Virus (HCV) Screening Completed 06/03/2025 Human Papillomavirus (HPV) Immunization (No Doses Required) Completed Meningococcal Immunization (ACWY) Aged Out No longer eligible b ased on patient's age to complete this topic Rotavirus Immunization Aged Out No lo nger eligible based on patient's age to complete this topic Procedures Procedure Name Priority Date/Time Associated Diagnosis Comments LIPID PANEL 07/12/2025 12:00 AM CDT THYROID STIMULATING HORMONE (TSH) 07/12/2025 12:00 AM CDT CMP (COMPREHENSIVE METABOLIC PANEL) 07/12/2025 12:00 AM CDT COMPLETE BLOOD COUNT (CBC) WITH DIFF 07/12/2025 12:00 AM CDT HEPATITIS C ANTIBODY Routine 06/03/2025 10:04 AM CDT Need for hepatitis C screening test from Last 3 Months or Most Recently Relevant to Health Maintenance Results * THYROID STIMULATING HORMONE (TSH) (07/12/2025 12:00 AM CDT) 07/12/2025 us Provider Scan CHEMISTRY ORDERABLES Final Resul t Performing Organization Address City/[facility]/ZIP Co de Phone Number SCAN * LIPID PANEL (07/12/2025 12:00 AM CDT) CHOLESTEROL 232 SCAN HDL CHOLESTEROL 48 SCAN LDL 152 SCAN 07/12/2025 us Provider Scan CHEMISTRY ORDERABLES Final Resul t SCAN * CMP (COMPREHENSIVE METABOLIC PANEL) (07/12/2025 12:00 AM CDT) 07/12/2025 us Provider Scan CHEMISTRY ORDERABLES Final Resul t SCAN * COMPLETE BLOOD COUNT (CBC) WITH DIFF (07/12/2025 12:00 AM CDT) 07/12/2025 us Provider Scan HEMATOLOGY ORDERABLES Final Resu lt Performing Organization Address City/[facility] Co de Phone Number SCAN * HEPATITIS C ANTIBODY (06/03/2025 10:04 AM CDT) hepatitis C antibody 0.12 <1 S/CO 06/03/2025 10:56 PM CDT [facility] Comment: Signal/Cutoff ratio < 0.79 is Nondetected Signal/Cutoff ratio 0.80-0.99 is Grayzone Signal/Cutoff ratio > 0.99 is Detected Supplemental assays are recommended if signal/cutoff ratio is >/=1.00. Signal/cutoff ratio result >/= 5.00 is 97% predictive of positivity for recombinant immunoblot assay (RIBA) and will be reported to the [place] Department of Public Health as required. Blood Venipuncture / Unknown 06/03/2025 10:04 AM CDT 06/03/2025 10:33 AM CDT Argelia Ramos PAC CHEMISTRY ORDERAB LES Final Result Performing Organization Address City/[facility] Co de Phone Number [facility] [address] [place] [address], from Last 3 Months or Most Recently Relevant to Health Maintenance [place] [address] [place] [address] Care Teams Interstate Planner Relationship Specialty Start Date End Date Chente Bloom, PAC [address] [place] [phone] PCP - General Physician Phlebotomy Services Technician 07/08/23
--- OUTSIDE RECORDS SUMMARY | 2025-09-19 18:18 | XMS_ITS | Clinical Summary ---
Author Organization 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 Not on file Not on file [...] 2:41 PM CDT Height 177.8 cm (5' 10) 05/28/2023 2:41 PM CDT Body Mass Index 33 05/28/2023 2:41 PM CDT Plan of Treatment Health Maintenance Due Date Last Done Comments Hepatitis C Screening 1984 DTaP/Tdap/Td Vaccine (1 - Tdap) 1995 Varicella Vaccines (1 of 2 - 13+ 2-dose series) 1996 Hepatitis B Screening 2002 Pneumococcal vaccine <65 (1 of 2 - PCV) 2003 HPV Vaccines (1 - 3-dose SCDM series) 2011 Depression Screening 02/19/2022 02/19/2021 Regular Well Visit/Exam 18-64 02/19/2022 02/19/2021 Influenza Vaccine (#1) 2025 Insurance [place] [id number] [employer] [facility] [place] [id number] Care Teams Sailor Relationship Specialty Start Date End Date Fran Vazquez MD [address] [place] [address] PCP - General Emergency Medicine 11/27/22 [place] [id number] [address] Consulting Physician Cardiology 02/19/21 Mohsen Louis DPM [address] [place] [address] Referring Physician 02/19/21 Juan Pablo Barros MD [address] [place] [address] Consulting Physician Urology 02/19/21
--- NOTE | 2025-09-19 18:33 | ED_ITS ---
HPI - Nausea/Vomiting/Diarrhea General Chief complaint: Nausea/Vomiting/Diarrhea Stated complaint: Diarrhea/Nausea Time Seen by Provider: 09/19/25 18:30 Source: patient, RN notes reviewed and old records reviewed Mode of arrival: ambulatory Limitations: no limitations History of Present Illness HPI Narrative: 40-year-old male who presents to [facility] Care with complaints diarrhea and stomach ache since yesterday which has decreased with 2 diarrhea stools today. He states that he has had headache and also nausea today without any emesis. Patient reports that he takes pantoproazole daily and he has stayed on clear liquids today and feels he has stayed hydrated. MD elicited complaint: nausea, diarrhea and other (stomach ache) Pertinent past history: other (IBS) Onset (ago): day(s) (yesterday) Description of diarrhea: watery Associated nausea: Yes Associated abdominal pain: Yes Location of pain: periumbilical (stomach ache) Pain consistency: colicky Pain scale (0-10): 2 Treatment prior to arrival: other (Tylenol and daily protonix) Related Data Home Medications ?Medication ?Instructions ?Recorded ?Confirmed ?Last Taken ?Type pantoprazole 02/10/25 Unknown History albuterol sulfate 90 mcg/actuation inhalation 09/19/25 Unknown History aerosol inhaler pantoprazole 40 mg tablet,delayed mg PO 09/19/25 Unkn own History release Allergies Allergy/AdvReac Type Severity Reaction Status Date / Time No Known Allergies Allergy Verified 09/19/25 18:03 Review of Systems Review of Systems: CONSTITUTIONAL: Denies fever, chills, or sweats. ENT: Denies rhinorrhea, congestion, sore throat, or otalgia. CARDIOVASCULAR: Denies chest pain, palpitations, or edema. RESPIRATORY: Denies cough or dyspnea. GASTROINTESTINAL: Reports abdominal pain,states colicky 'stomach ache' nausea, no vomiting, +diarrhea. GENITOURINARY: Denies dysuria or hematuria. SKIN: Denies rash or itching. MUSCULOSKELETAL: Denies back pain, joint pain, or myalgia. NEUROLOGIC: Reports headache, no numbness, or weakness. All systems reviewed & are unremarkable except as noted in HPI and below PMFSH Past Medical History Medical History Asthma GERD (gastroesophageal reflux disease) History of sinus problem Tachycardia Undescended testicle, unilateral Surgical History Surgical History H/O right wrist surgery ORIF fracture S/P left inguinal herniorrhaphy Family History Family History Mother Diabetes mellitus Social History Social History (Updated 09/21/25 @ 19:50 by Kate Jerez, CLUBHOUSE MANAGER) Smoking packs per day: 0.5 Smoking cigarettes per day: 10.0 Smoking status: Current every day smoker Tobacco type: cigarettes and e-cigarettes/vaping Alcohol intake: current Alcohol use details: Rarely uses Substance use type: does not use Living arrangements: with family Gender identity (if verbalized by the patient): Male Comments At time of signature, agree with nursing past medical, surgical, social and family history. There is no relevant family history pertinent to the presenting complaint Exam Narrative: GENERAL: Well-appearing, well-nourished, and in no acute distress. HEAD: Normocephalic, atraumatic. EYES: PERRLA, conjunctivae clear, and EOMI. ENT: Nares clear. Mucous membranes moist. Oropharynx without edema, erythema, or lesions. Tonsils not enlarged and without exudate. NECK: Supple. No lymphadenopathy CHEST: Speaks in full sentences. No respiratory distress.SAO2 98% on room air HEART: Regular rate and rhythm. ABDOMEN: Soft, flat, nondistended. No guarding, rebound tenderness, or rigid. No pulsatilla masses. Bowel sounds present in all four quadrants. No organomegaly. Negative Walker?s sign. No periumbilical tenderness reports colicky 'stomach ache'. No Supra public tenderness or distension. Good femoral pulses bilaterally. No hernia noted.left hernia repair scars no surface trauma. SKIN: Warm, dry, no rash. NEURO:? Alert and oriented x3. PSYCH: Normal mood and affect Course Course Level of Care: Express Care Visit Vital Signs Vital signs: Vital Signs Temperature 36.8 C 09/19/25 17:35 Pulse Rate 84 09/19/25 17:35 Respiratory Rate 18 09/19/25 17:35 Blood Pressure 113/77 09/19/25 17:35 Pulse Oximetry 98 09/19/25 17:35 Oxygen Delivery Room Air 09/19/25 17:35 Temperature 36.8 C 09/19/25 17:35 Pulse Rate 84 09/19/25 17:35 Respiratory Rate 18 09/19/25 17:35 Blood Pressure 113/77 09/19/25 17:35 Pulse Oximetry 98 09/19/25 17:35 Oxygen Delivery Room Air 09/19/25 17:35 reviewed MDM MDM Narrative Medical decision making narrative: Exam findings show no acute concerns or changes; patient is non-toxic appearing and is in no distress. Patient is appropriate for outpatient treatment and follow-up. Patient is aware of diagnosis, understands and agrees to treatment plan. Anticipatory guidance given. Patient agrees to follow-up as directed and is aware of reasons to seek care at the emergency department. Differential Diagnosis Differential Diagnosis: Differential diagnostic considerations for nausea/vomiting/diarrhea include gastroenteritis, appendicitis, IBD, intestinal obstruction, clostridium difficile, food poisoning, peritonitis, IBS, dehydration, ischemic bowel, ACS, pancreatitis, drug induced nausea/vomiting. Critical Care Time Critical Care Time Critical Care Time: No Discharge Plan Discharge Clinical Impression: Gastroenteritis Patient Disposition: Home Condition: Stable Instructions: Antibiotic Form, Gastroenteritis (ED) Additional Instructions: Clear liquids for the next 8-10 hours, then advance to a bland diet as tolerated A bland diet can consist of--BRAT diet which is bananas, rice, applesauce, and toast Avoid fried, greasy, fatty, fried foods Avoid caffeine, nicotine, and alcohol Return to your regular diet in the next 3-4 days Medication as directed for nausea and vomiting recommend Tylenol for fevers and pain Sometimes ibuprofen/Aleve can cause increased stomach upset [id number] Imodium if develop diarrhea Follow-up with her PCP if continued problems or uncontrolled pain If your symptoms persist, change or worsen significantly before you can contact your personal physician then please, without delay, go to the emergency department for further evaluation. Follow-up with PCP in 7-10 days or sooner if needed Patient Language: Serbian Prescriptions: New ondansetron 4 mg tablet,disintegrating 4 mg PO Q6H PRN (Reason: nausea and vomiting) Qty: 20 0RF Rx Instructions: whatever preparation is covered on his insurance No Action pantoprazole pantoprazole 40 mg tablet,delayed release (DR/EC) PO albuterol sulfate 90 mcg/actuation HFA aerosol inhaler INHALATION Follow-up/Referrals: Wolf,Chente Gonzalez [Primary Care Provider, Unknown] Stand Alone Forms: Work/School Release IP Time of Disposition: 18:46 Quality [place] Coma Scale Eyes: Open Verbal: Oriented and Alert Motor: Follows Commands [place] Coma Total Score: 15
== END 2025-09-19 18:48 | disposition home or self-care (01) ==
PROVIDERS: Emergency Provider Registered Nurse; PCP Physician Assistant
DX: K52.9 Noninfective gastroenteritis and colitis, unspecified (principal); F17.210 Nicotine dependence, cigarettes, uncomplicated; F17.290 Nicotine dependence, other tobacco product, uncomplicated; J45.909 Unspecified asthma, uncomplicated; K21.9 Gastro-esophageal reflux disease without esophagitis
CPT/HCPCS: 99213; G0463